=== PATIENT | female | born 1940 | race Caucasian/White ===

== ENCOUNTER → 2021-10-04 11:41 | Outpatient (CLI) | payer MEDICARE, BC, SELFPAY ==
[2021-10-04 12:31] LABS: Basophils # 0.1 K/mm3 (0-0.2); Eosinophils # 0.2 K/mm3 (0.0-0.4); Eosinophils % 3.3 % (0.1-12.0); Hematocrit 44.6 % (37.0-47.0); Hemoglobin 14.9 g/dL (12.2-16.2); Lymphocytes % 29.4 % (10-50); Mean Corpuscular HGB Conc 33.5 g/dL (31.8-35.4); Mean Corpuscular Hemoglobin 32.3 pg (27.0-31.2); Mean Corpuscular Volume 96.3 fl (81-99); Mean Platelet Volume 7.9 fl (7.4-10.4); Monocytes # 0.5 K/mm3 (0.1-1.0); Monocytes % 7.7 % (1.7-9.3); Neutrophils % 58.7 % (37.0-80.0); Platelet Count 490 K/mm3 (142-424); Red Blood Count 4.63 M/mm3 (4.20-5.40); Red Cell Distribution Width 12.9 % (11.5-17.5); White Blood Count 6.8 K/mm3 (4.8-10.8)
[2021-10-04 12:50] LABS: Alanine Aminotransferase 19 U/L (12-78); Albumin Level 4.6 g/dl (3.5-5.0); Albumin/Globulin Ratio 1.9 (1.1-1.8); Alkaline Phosphatase 82 U/L (38-126); Anion Gap 13.1 mEq/L (5-15); Aspartate Amino Transferase 30 U/L (14-36); Bilirubin,Total 0.9 mg/dl (0.2-1.3); Blood Urea Nitrogen 19 mg/dl (7-17); Carbon Dioxide 30 mmol/L (22.0-30.0); Chloride 98 mmol/L (98-107); Chol/HDL Ratio 1.9 (1-3.5); Cholesterol 140 mg/dl (140-200); Estimated Glomerular Filt Rate 53 ml/min (>60); GFR (African American) 64 ML/MIN (>60); Globulin 2.4 g/dL (1.3-3.2); Glucose 87 mg/dl (74-100); HDL Cholesterol 74 mg/dl (40-60); Potassium 5.1 mmoL/L (3.5-5.1); Sodium 136 mmol/L (136-145); Triglycerides 169 mg/dl (30-150); VLDL Cholesterol 34 mg/dL (0-40)
[2021-10-04 13:01] LABS: Direct LDL Cholesterol 88.88 mg/dL (100-129)
[2021-10-04 13:07] LABS: Free T4 (Free Thyroxine) 1.34 ng/dl (0.78-2.19)
== END ==
PROVIDERS: Visit Provider Nurse Practitioner Family
DX: Z00.00 Encounter for general adult medical examination without abnormal findings (principal); I10 Essential (primary) hypertension; E03.9 Hypothyroidism, unspecified; E78.2 Mixed hyperlipidemia
CPT/HCPCS: 36415; 80053; 80061; 84439; 84443; 85025

== ENCOUNTER 2022-03-23 11:15 | Emergency (ER) | payer MEDICARE, BC, SELFPAY ==
[2022-03-23 12:20] VITALS: BP 139/75; PULSE 65; RESP 18; TEMP 36.8; O2SAT 94; BMI 26.5
--- NOTE | 2022-03-23 12:44 | HMH.EDUTC ---
[facility] [place] Clinical Impression: Sinusitis Qualifiers: Sinusitis location: unspecified location Chronicity: unspecified Qualified Code(s): J32.9 - Chronic sinusitis, unspecified Disposition: Home, Self-Care Condition on Discharge: Good Instructions: Sinusitis, DI for Sinusitis, Azithromycin Additional Instructions: *Monitor Temp, Over the counter Motrin or Tylenol as directed/as needed Tylenol every 4 hours and Motrin every 6 hours (as long as your family doctor has told you that you can take it) for fever or pain. and straight to ER if unable to lower temp less than 101.0 after medication given *Warm salt water gargles may help to soothe the throat *Throat Lozenges *Warm fluids like tea with honey may help to soothe the throat *Sleep elevated *Humidifier/Vaporizer *Flonase 2 sprays in each nostril daily but be aware that it may take 2-3 days before you notice improvement Take medication as prescribed Follow up IMMEDIATELY for new or worsening symptoms or no Noticeable improvement over the next 48-72 hours. 911 for difficulty breathing or swallowing Prescriptions: Fluticasone Propionate [Flonase 50mcg nasal spray 16gm] 1 spr NS DAILY #1 each Transmission Status: Received by [facility] Azithromycin [Z-Song 250mg Tab] 250 mg PO DIRECTED #6 tab Transmission Status: Received by [facility] [facility] Referrals: Bryant Shell MD [Primary Care Provider] - As needed Time of Disposition: 12:54 Medical Decision Making - Rodolfo Inquiry Pt receiving controlled substance: No Rodolfo was queried for this patient: No Vital Signs: 03/23/22 12:20 03/23/22 12:57 Temperature 98.3 F 98.3 F Temperature Source Oral Pulse Rate 65 Pulse Rate [Left Brachial] 65 Respiratory Rate 18 18 Blood Pressure 139/75 Blood Pressure [Left Arm] 139/75 Blood Pressure Mean [Left Arm] 96 Blood Pressure Source [Left Arm] Automatic Cuff Blood Pressure Position [Left Arm] Sitting 02 Sat by Pulse Oximetry 94 L Oxygen Delivery Method Room Air Orders (Tests/Meds): ED MEDICATIONS Discontinued Medications Generic Name Dose Route Start Last Admin Trade Name Freq PRN Reason Stop Dose Admin Methylprednisolone Sodium Succinate 125 mg 03/23/22 12:49 03/23/22 12:57 Methylprednisolone Sod Succ 125mg Vial IM 03/23/22 12:50 125 mg ONCE ONE Administration [facility] [place] - General Stated complaint: hoarse, sore throat Time Seen by Provider: 03/23/22 12:45 Mode of Arrival: Ambulatory Source of Information: Patient Limitations: No Limitations Description of Symptoms (Recalled from Triage Doc. by RN): PATIENT C/O SORE THROAT AND HOARSENESS SINCE THIS MORNING HEENT Symptoms (Recalled from RN notes): Yes Resp Symptoms (Recalled from RN notes): No Skin Symptoms (Recalled from RN notes): No MS Symptoms (Recalled from RN notes): No Functional Status (Recalled from RN notes): WNL - History of Present Illness Provider Complaint: Patient state that she has been having sinus congestion for a couple of weeks and thought it may have been allergies States that then yesterday she started having sore throat and drainage in the back of her throat and when she woke up this morning she could barely talk and her throat felt worse so family brought her in - Related Data Previous Rx's Medication Instructions Recorded Azithromycin [Z-Song 250mg Tab] 250 mg PO DIRECTED #6 tab 03/23/22 Fluticasone Propionate [Flonase 1 spr NS DAILY #1 each 03/23/22 50mcg nasal spray 16gm] Allergies Allergy/AdvReac Type Severity Reaction Status Date / Time No Known Allergies Allergy Verified 03/23/22 12:44 - Worker's Comp Is this a Worker's Comp case?: No [facility] History - Hepatitis A Screen Attestation statement:: This patient has been screened for Hepatitis A risk factors. I have reviewed the patient's past medical history: Yes ROS Obtained: Yes All systems reviewed & no additional complaints, Yes Syste
[2022-03-23 12:57] VITALS: BP 139/75; PULSE 65; RESP 18; TEMP 36.8; O2SAT 94
== END 2022-03-23 13:10 | disposition home or self-care (01) ==
PROVIDERS: Emergency Provider Nurse Practitioner; PCP Family Medicine
DX: J32.9 Chronic sinusitis, unspecified (principal); J02.9 Acute pharyngitis, unspecified
CPT/HCPCS: 96372; 99212; G0463

== ENCOUNTER 2022-07-09 22:31 | Emergency (ER) | payer MEDICARE, BC, SELFPAY ==
[2022-07-09 22:38] VITALS: BP 159/92; PULSE 66; O2SAT 95
[2022-07-09 22:45] VITALS: BP 159/92; PULSE 66; RESP 18; TEMP 36.6; O2SAT 96; BMI 25.7
[2022-07-09 23:00] VITALS: BP 132/73; PULSE 63; O2SAT 94
--- NOTE | 2022-07-09 23:20 | CT_ITS ---
PROCEDURE INFORMATION: Exam: CT Abdomen And Pelvis With Contrast Exam date and time: 07/09/2022 11:47 PM Age: 82 years old Clinical indication: Nausea; Additional info: Excessive nausea TECHNIQUE: Imaging protocol: Computed tomography of the abdomen and pelvis with contrast. Radiation optimization: All CT scans at this facility use at least one of these dose optimization techniques: automated exposure control; mA and/or kV adjustment per patient size (includes targeted exams where dose is matched to clinical indication); or iterative reconstruction. Contrast material: ISOVUE; Contrast volume: 75 ml; Contrast route: IV; COMPARISON: No relevant prior studies available. FINDINGS: Lungs: There is strands of increased density at the right lung base consistent with subsegmental atelectasis or scarring. No pleural effusion or pneumothorax. Heart: Heart size is normal. No pericardial effusion. Liver: There is a 1 cm circumscribed low-attenuation focus of the anterior right hepatic lobe consistent with cyst. There is an 8 mm vague poorly circumscribed lesion of the posterior right hepatic lobe, possible cyst. Gallbladder and bile ducts: Status post cholecystectomy. There is ectasia of the common duct. Pancreas: Unremarkable. Spleen: Unremarkable. Adrenal glands: Unremarkable. Kidneys and ureters: There is a 2 cm left parapelvic cyst versus prominent extra collecting system. There is There is a 7 mm left renal cortical cyst. Stomach and bowel: Small and large bowel caliber is normal. There is mild diverticulosis of the sigmoid colon without CT evidence of acute diverticulitis. Appendix: The appendix is identified and is normal. Intraperitoneal space: No free air. No significant fluid collection. Retroperitoneal space: No bulky lymphadenopathy. Vasculature: Unremarkable. No abdominal aortic aneurysm. Lymph nodes: Unremarkable. No enlarged lymph nodes. Urinary bladder: Unremarkable as visualized. Reproductive: Status post hysterectomy. Bones/joints: There are postoperative changes of the right femur with intramedullary job and femoral neck compression screw in place. Soft tissues: Small hiatus hernia. Small umbilical hernia contains fat only. IMPRESSION: 1. Small hiatus hernia. 2. Mild sigmoid diverticulosis without evidence of acute diverticulitis. 3. Cystic appearing lesions of the liver measure 10 and 8 mm. Hepatic ultrasound may clarify. 4. Left renal cysts. 5. Status post cholecystectomy and hysterectomy. COMMENTS: Consistent with the [employer]'s Incidental Findings Committee white paper (J Am Jennifer Radiol 2018): Any incidental renal lesion less than 1 cm or classified as too small to characterize, or any incidental cystic renal lesion characterized as simple-appearing, is likely benign. No follow-up imaging is recommended for these lesions per consensus recommendations based on imaging criteria.
[2022-07-09 23:27] LABS: Basophils # 0.1 K/mm3 (0-0.2); Basophils % 1.2 % (0.1-2.0); Eosinophils # 0.3 K/mm3 (0.0-0.4); Eosinophils % 4.1 % (0.1-12.0); Hematocrit 44.3 % (37.0-47.0); Hemoglobin 13.4 g/dL (12.2-16.2); Lymphocytes # 2.1 K/mm3 (0.7-4.5); Lymphocytes % 24.9 % (10-50); Mean Corpuscular HGB Conc 30.3 g/dL (31.8-35.4); Mean Corpuscular Hemoglobin 31.6 pg (27.0-31.2); Mean Corpuscular Volume 104.3 fl (81-99); Mean Platelet Volume 8.5 fl (7.4-10.4); Monocytes # 0.8 K/mm3 (0.1-1.0); Monocytes % 9.1 % (1.7-9.3); Neutrophils % 60.8 % (37.0-80.0); Platelet Count 422 K/mm3 (142-424); Red Blood Count 4.25 M/mm3 (4.20-5.40); Red Cell Distribution Width 13.1 % (11.5-17.5); White Blood Count 8.3 K/mm3 (4.8-10.8)
[2022-07-09 23:30] VITALS: BP 136/69; PULSE 62; O2SAT 96
[2022-07-09 23:32] LABS: Microscopic, Urine URINE MICROSCOPIC (MICROSCOPIC)
[2022-07-09 23:33] LABS: Appearance,Urine CLOUDY (Clear); Bilirubin,Urine Negative (Negative); Blood, Urine 1+ (Negative); Color,Urine YELLOW (Yellow); Glucose,Urine (UA) Negative (Negative); Ketones,Urine Negative (Negative); Leukocyte Esterase,Urine 1+ (Negative); Nitrate,Urine POSITIVE (Negative); Protein,Urine Negative (Negative); Specific Gravity, Urine 1.025 (1.005-1.030); Urobilinogen,Urine 0.2 EU/dl (0.2)
[2022-07-09 23:34] LABS: Alanine Aminotransferase 36 U/L (12-78); Albumin Level 3.8 g/dl (3.5-5.0); Albumin/Globulin Ratio 1.6 (1.1-1.8); Alkaline Phosphatase 84 U/L (38-126); Amylase 65 U/L (30-110); Aspartate Amino Transferase 41 U/L (14-36); Blood Urea Nitrogen 15 mg/dl (7-17); Calcium 9.1 mg/dl (8.4-10.2); Carbon Dioxide 28 mmol/L (22.0-30.0); Chloride 104 mmol/L (98-107); Creatinine Clearance Estimated 45 mL/min (50-200); Estimated Glomerular Filt Rate 60 ml/min (>60); GFR (African American) 73 ML/MIN (>60); Globulin 2.4 g/dL (1.3-3.2); Glucose 147 mg/dl (74-100); Lipase 95 U/L (23-300); Magnesium 1.8 mg/dl (1.6-2.3); Sodium 138 mmol/L (136-145); Total Protein,Serum 6.2 g/dl (6.3-8.2)
[2022-07-09 23:35] LABS: Bacteria,Urine 2+ /lpf; WBC,Urine 20-50 #/hpf (0-3)
[2022-07-09 23:38] LABS: Bilirubin,Total 0.1 mg/dl (0.2-1.3)
[2022-07-09 23:40] LABS: C-Reactive Protein < 0.3 mg/L (0-4)
--- NOTE | 2022-07-09 23:44 | HMH.EDNVD ---
ED Disposition Clinical Impression: UTI (urinary tract infection) Qualifiers: Urinary tract infection type: site unspecified Hematuria presence: without hematuria Qualified Code(s): N39.0 - Urinary tract infection, site not specified Disposition: Home, Self-Care Condition on Discharge: Good Instructions: DI for Nausea -- Adult, DI for Urinary Tract Infection (UTI) Additional Instructions: use meds and anthony pcp for follow up Prescriptions: cephALEXin [cephALEXin 500mg capsule*] 500 mg PO TID #30 cap Transmission Status: Pending to [facility] Referrals: Bryant Shell MD [Primary Care Provider] - - Critical Care Critical Care Time: No Attestation: On 07/09/22, the high probability of a clinically significant, sudden or life threatening deterioration of the following system(s) required my full and direct attention, intervention and personal management. The time I documented below is in addition to time spent performing reported procedures but includes the following listed in this critical care notation. Medical Decision Making - Medical Records Medical records reviewed: Yes: I reviewed the patient's medical records. - Rodolfo Inquiry Pt receiving controlled substance: No Vital Signs: 07/09/22 22:38 07/09/22 22:45 07/09/22 23:00 Temperature 98 F Temperature Source Oral Pulse Rate 66 63 Pulse Rate [Apical] 66 Respiratory Rate 18 Blood Pressure 159/92 H 132/73 Blood Pressure [Right Arm] 159/92 H Blood Pressure Mean [Right Arm] 114 Blood Pressure Source [Right Arm] Automatic Cuff Blood Pressure Position [Right Arm] Sitting 02 Sat by Pulse Oximetry 95 96 94 L Oxygen Delivery Method Room Air Room Air Room Air 07/09/22 23:30 07/10/22 00:31 Temperature Temperature Source Pulse Rate 62 59 L Pulse Rate [Apical] Respiratory Rate Blood Pressure 136/69 120/58 L Blood Pressure [Right Arm] Blood Pressure Mean [Right Arm] Blood Pressure Source [Right Arm] Blood Pressure Position [Right Arm] 02 Sat by Pulse Oximetry 96 96 Oxygen Delivery Method Room Air Room Air - Lab Data Lab results reviewed: Yes: I reviewed the patient's lab results. Lab Results 07/09/22 23:15: WBC 8.3, RBC 4.25, Hgb 13.4, Hct 44.3, MCV 104.3 H, MCH 31.6 H, MCHC 30.3 L, RDW 13.1, Plt Count 422, MPV 8.5, Neut % (Auto) 60.8, Lymph % (Auto) 24.9, Pepin % (Auto) 9.1, Eos % (Auto) 4.1, Baso % (Auto) 1.2, Neut # (Auto) 5.0, Lymph # (Auto) 2.1, Pepin # (Auto) 0.8, Eos # (Auto) 0.3, Baso # (Auto) 0.1, ESR 18 07/09/22 23:15: Sodium 138, Potassium 4.0, Chloride 104, Carbon Dioxide 28, Anion Gap 10.0, BUN 15, Creatinine 0.90, Estimated Creat Clear 45, Estimated GFR 60, Est GFR ( Amer) 73, Glucose 147 H, Calcium 9.1, Magnesium 1.8, Total Bilirubin 0.1 L, AST 41 H, ALT 36, Alkaline Phosphatase 84, C-Reactive Protein < 0.3, Total Protein 6.2 L, Albumin 3.8, Globulin 2.4, Albumin/Globulin Ratio 1.6, Amylase 65, Lipase 95, Procalcitonin < 0.030, TSH 4.90 H 07/09/22 23:15: NT-Pro-B Natriuret Pep 34.0 07/09/22 23:15: SARS-CoV-2 (PCR) Not detected, Influenza A Untype (PCR) Not detected, Influenza Type B (PCR) Not detected 07/09/22 23:25: Urine Color Yellow, Urine Appearance Cloudy, Urine pH 6.0, Ur Specific [place] 1.025, Urine Protein Negative, Urine Glucose (UA) Negative, Urine Ketones Negative, Urine Blood 1+, Urine Nitrate Positive, Urine Bilirubin Negative, Urine Urobilinogen 0.2, Ur Leukocyte Esterase 1+ A, Urine RBC 5-10, Urine WBC 20-50, Urine Bacteria 2+ Result diagrams: 07/09/22 23:15 07/09/22 23:15 Orders (Tests/Meds): ED MEDICATIONS Generic Name Dose Route Start Last Admin Trade Name Freq PRN Reason Stop Dose Admin Sodium Chloride 1,000 mls @ 999 mls/hr 07/09/22 23:00 07/09/22 22:57 Sod Chlor 0.9% 1000ml Bag IV 07/10/22 00:00 999 mls/hr .Q1H1M TANGELA Administration Ceftriaxone Sodium 1 gm/ 50 mls @ 100 mls/hr 07/10/22 00:15 07/10/22 00:03 Sodium Chloride IV 07/24/22 00:
[2022-07-09 23:50] LABS: Erythrocyte Sedimentation Rate 18 mm/hr (0-30)
[2022-07-09 23:55] LABS: Procalcitonin < 0.030 ng/mL (0.0-2.0)
[2022-07-09 23:56] LABS: Coronavirus 19, PCR Not Detected (NotDetected); Influenza A, PCR Not Detected (NotDetected); Influenza B, PCR Not Detected (NotDetected)
[2022-07-10 00:31] VITALS: BP 120/58; PULSE 59; O2SAT 96
[2022-07-10 01:05] VITALS: BP 131/74; PULSE 64; RESP 18; TEMP 36.6; O2SAT 96
== END 2022-07-10 01:12 | disposition home or self-care (01) ==
PROVIDERS: Emergency Provider Emergency Medicine; PCP Family Medicine
DX: N39.0 Urinary tract infection, site not specified (principal)
CPT/HCPCS: 74177; 80053; 81001; 82150; 83690; 83735; 83880; 84145; 84443; 85025; 85651; 86140; 87086; 87088; 87186; 96365; 96367; 96375; 99284; C9803; J0696; J2405; Q9967; U0003; U0005

== ENCOUNTER 2022-10-25 02:45 | Emergency (ER) | payer MEDICARE, BC, SELFPAY ==
[2022-10-25 02:48] VITALS: BP 130/76; PULSE 78; RESP 17; TEMP 36.9; O2SAT 98; BMI 25.7
[2022-10-25 03:06] VITALS: BMI 25.7
--- NOTE | 2022-10-25 03:07 | XR_ITS ---
PROCEDURE INFORMATION: Exam: XR Chest Exam date and time: 10/25/2022 3:03 AM Age: 82 years old Clinical indication: Cough TECHNIQUE: Imaging protocol: Radiologic exam of the chest. Views: 2 views. COMPARISON: CT ABDOMEN PELVIS W CON 07/09/2022 11:47 PM FINDINGS: Lungs: Unremarkable. No consolidation. Pleural spaces: Unremarkable. No pleural effusion. No pneumothorax. Heart/Mediastinum: Unremarkable. No cardiomegaly. Bones/joints: Unremarkable. IMPRESSION: No acute findings.
[2022-10-25 03:14] LABS: Coronavirus 19, PCR Not Detected (NotDetected); Influenza A, PCR Not Detected (NotDetected); Influenza B, PCR Not Detected (NotDetected)
[2022-10-25 03:14] LABS: Microscopic, Urine URINE MICROSCOPIC (MICROSCOPIC)
[2022-10-25 03:16] LABS: Appearance,Urine CLEAR (Clear); Bilirubin,Urine Negative (Negative); Blood, Urine 1+ (Negative); Color,Urine YELLOW (Yellow); Glucose,Urine (UA) Negative (Negative); Ketones,Urine Negative (Negative); Leukocyte Esterase,Urine 2+ (Negative); Nitrate,Urine POSITIVE (Negative); Protein,Urine Negative (Negative); Specific Gravity, Urine 1.025 (1.005-1.030)
[2022-10-25 03:22] LABS: Strep Scrn Group A (Rapid) Negative (Negative)
[2022-10-25 03:30] VITALS: BP 125/80; PULSE 78; O2SAT 94
[2022-10-25 03:31] LABS: Bacteria,Urine 3+ /lpf
--- NOTE | 2022-10-25 03:58 | HMH.EDGENADL ---
Discharge Plan Disposition Patient Disposition: Home, Self-Care Prescriptions Prescriptions: New cephalexin [cephalexin] 500 mg capsule 500 mg PO TID Qty: 20 0RF phenazopyridine [Pyridium] 200 mg tablet 200 mg PO TID 2 Days Qty: 6 0RF No Action furosemide 40 MG tablet 40 mg PO DAILY donepezil 10 MG tablet 10 mg PO HS carvedilol 3.125 MG tablet 3.125 mg PO BID meloxicam 7.5 MG tablet 7.5 mg PO DAILY levothyroxine 50 MCG tablet 50 mcg PO DAILY lisinopril 10 MG tablet 10 mg PO DAILY aspirin 81 MG tablet,chewable 81 mg PO DAILY metoclopramide HCl 10 MG tablet 10 mg PO DAILY ezetimibe-simvastatin 1 EACH tablet 1 each PO DAILY omeprazole 20 MG tablet,delayed release (DR/EC) 20 mg PO DAILY Referrals Follow up/Referrals: Bryant Shell MD [Primary Care Provider] - See instructions Clinical Impressions Clinical Impression: UTI (urinary tract infection) Instructions Patient Instructions: DI for Urinary Tract Infection (UTI) Discharge ED Provider: Milan Fuentes General Adult HPI General Chief complaint: PAIN Stated complaint: sore throat,possible UTI, kidd after urination Time Seen by Provider: 10/25/22 03:58 Mode of Arrival: Family Vehicle Source of Information: Patient, Relative and Medical Record Limitations: No Limitations Description of Symptoms (Recalled from ER Triage Doc. by RN): Pt c/o burning with urination, sore throat, aches, and cough. States, last year she had step throat and an UTI and now feels exactly the same way as last year . States this began suddenly around 0100 this morning. Denies any n/v/d. Denies any SOB, dsynea. History of Present Illness HPI narrative: since this afternoon has urinary sx and has sore throat and has progressed Onset (ago): hour(s) Severity: moderate Associated symptoms: denies other symptoms Treatments prior to arrival: none Related Data Home Medications Medication Instructions Recorded Confirmed aspirin 81 mg chewable tablet 81 mg PO DAILY heart health 07/09/22 10/25/22 carvedilol 3.125 mg tablet 3.125 mg PO BID htn 07/09/22 10/25/22 donepezil 10 mg tablet 10 mg PO HS Insomnia 07/09/22 10/25/22 ezetimibe 10 mg-simvastatin 40 mg 1 each PO DAILY htn 07/09/22 10/25/22 tablet furosemide 40 mg tablet 40 mg PO DAILY Edema 07/09/22 10/25/22 levothyroxine 50 mcg tablet 50 mcg PO DAILY hypothyroid 07/09/22 10/25/22 lisinopril 10 mg tablet 10 mg PO DAILY htn 07/09/22 10/25/22 meloxicam 7.5 mg tablet 7.5 mg PO DAILY Pain 07/09/22 10/25/22 metoclopramide HCl 10 mg tablet 10 mg PO DAILY Nausea & vomiting 07/09/22 10/25/22 omeprazole 20 mg tablet,delayed 20 mg PO DAILY GERD 07/09/22 10/25/22 release Previous Rx's Medication Instructions Recorded cephalexin 500 mg capsule 500 mg PO TID #20 caps 10/25/22 phenazopyridine 200 mg tablet 200 mg PO TID 2 days #6 tabs 10/25/22 (Pyridium) Allergies Allergy/AdvReac Type Severity Reaction Status Date / Time No Known Allergies Allergy Verified 03/23/22 12:44 [facility] Disclaimer: The information contained in this section may have been updated after the patient was seen, as this information can be updated by other users. Social History Smoking Status: Never smoker alcohol intake: never current occupational status: retired Travel in the last 8 weeks: None ROS Obtained: Yes All systems reviewed & no additional complaints except as documented Physical Exam General General appearance: alert Head Head exam: normocephalic Eye Eye exam: Present PERRL and EOMI ENT ENT exam: Present normal oropharynx and mucous membranes moist Neck Neck exam: Present trachea midline Respiratory Respiratory exam: Present normal lung sounds bilaterally Cardiovascular Cardiovascular exam: Present regular rate Abdominal Exam Abdominal exam: Present soft Extremities Exam Extremities exam: Present full ROM Neurological
[2022-10-25 04:19] VITALS: BP 130/77; PULSE 87; RESP 18; TEMP 36.9; O2SAT 95
== END 2022-10-25 04:29 | disposition home or self-care (01) ==
PROVIDERS: Emergency Provider Emergency Medicine; PCP Family Medicine
DX: N39.0 Urinary tract infection, site not specified (principal); J02.9 Acute pharyngitis, unspecified
CPT/HCPCS: 71046; 81001; 87086; 87088; 87186; 87430; 96372; 99283; C9803; J0696; U0003; U0005

== ENCOUNTER 2022-11-17 11:37 | Emergency (ER) | payer MEDICARE, OTHER, BC, SELFPAY ==
[2022-11-17] VITALS (9 sets, daily range): BP systolic 111–130; BP diastolic 63–92; PULSE 64–73; RESP 17–20; TEMP 36.8; O2SAT 94–97; BMI 32.2
--- NOTE | 2022-11-17 11:40 | ECG_ITS ---
APPROVED REPORT Exam: Resting ECG HR:68 bpm ECG Measurements Heart Rate 68 AXES RI 159 P 60 QRSd 91 QRS -53 QT 401 T 53 QTc 418 Conclusion SINUS RHYTHM INCOMPLETE RIGHT BUNDLE BRANCH BLOCK [90+ ms QRS DURATION, TERMINAL R IN V1/V2, 40+ ms S IN I/aVL/V4/V5/V6] LEFT ANTERIOR FASCICULAR BLOCK [QRS AXIS <= -45, QR IN I, RS IN II] ABNORMAL ECG UNCONFIRMED REPORT Electronically signed by : Colin St MD 11/17/2022 17:02:07
--- NOTE | 2022-11-17 11:52 | XR_ITS ---
FINAL REPORT CLINICAL HISTORY: CHEST PAIN COMPARISON: 10/25/2022 FINDINGS: SINGLE-VIEW CHEST The heart size is normal. The mediastinum is normal. There are mild left base opacities, favor atelectasis. There is no pneumothorax. IMPRESSION: Left base opacities, favor atelectasis. Reviewed, Interpreted and Dictated by Dylon Delong III, MD Transcribed by Jolene Escalona Authenticated and [facility]
[2022-11-17 12:00] LABS: Basophils # 0.1 K/mm3 (0-0.2); Eosinophils # 0.2 K/mm3 (0.0-0.4); Eosinophils % 3.1 % (0.1-12.0); Hematocrit 47.2 % (37.0-47.0); Hemoglobin 14.8 g/dL (12.2-16.2); Lymphocytes # 1.9 K/mm3 (0.7-4.5); Lymphocytes % 26.7 % (10-50); Mean Corpuscular HGB Conc 31.4 g/dL (31.8-35.4); Mean Corpuscular Hemoglobin 31.8 pg (27.0-31.2); Mean Corpuscular Volume 101.2 fl (81-99); Mean Platelet Volume 8.5 fl (7.4-10.4); Monocytes # 0.5 K/mm3 (0.1-1.0); Monocytes % 6.9 % (1.7-9.3); Neutrophils # 4.4 K/mm3 (1.8-7.8); Neutrophils % 62.2 % (37.0-80.0); Platelet Count 470 K/mm3 (142-424); Red Blood Count 4.66 M/mm3 (4.20-5.40); Red Cell Distribution Width 13.1 % (11.5-17.5); White Blood Count 7.1 K/mm3 (4.8-10.8)
[2022-11-17 12:01] LABS: Chloride 101 mmol/L (98-107); Potassium 4.3 mmoL/L (3.5-5.1); Sodium 140 mmol/L (136-145)
[2022-11-17 12:04] LABS: Anion Gap 12.3 mEq/L (5-15); Blood Urea Nitrogen 21 mg/dl (7-17); Carbon Dioxide 31 mmol/L (22.0-30.0); Creatinine Clearance Estimated 47 mL/min (50-200); Estimated Glomerular Filt Rate 43 ml/min (>60); GFR (African American) 52 ML/MIN (>60)
[2022-11-17 12:05] LABS: Calcium 9.4 mg/dl (8.4-10.2); Glucose 99 mg/dl (74-100)
--- NOTE | 2022-11-17 12:06 | HMH.EDGENADL ---
Discharge Plan Disposition Patient Disposition: Home, Self-Care Condition: Good Chief Complaint: Chest Pain Prescriptions Prescriptions: No Action furosemide 40 MG tablet 40 mg PO DAILY donepezil 10 MG tablet 10 mg PO HS carvedilol 3.125 MG tablet 3.125 mg PO BID meloxicam 7.5 MG tablet 7.5 mg PO DAILY levothyroxine 50 MCG tablet 50 mcg PO DAILY lisinopril 10 MG tablet 10 mg PO DAILY aspirin 81 MG tablet,chewable 81 mg PO DAILY metoclopramide HCl 10 MG tablet 10 mg PO DAILY ezetimibe-simvastatin 1 EACH tablet 1 each PO DAILY omeprazole 20 MG tablet,delayed release (DR/EC) 20 mg PO DAILY cephalexin [cephalexin] 500 mg capsule 500 mg PO TID Qty: 20 0RF phenazopyridine [Pyridium] 200 mg tablet 200 mg PO TID 2 Days Qty: 6 0RF Referrals Follow up/Referrals: Kaiser Ng MD [Staff Physician] - See instructions (Stable angina, outpatient cardiac work-up needed) Activity Restrictions/Add. Instructions Additional Instructions/Restrictions: Follow-up with cardiology, information is in your discharge packet. They will be able to do outpatient work-up for further characterization of your chest pain. If you have any other concerning signs or symptoms, return to the ED for further evaluation. Clinical Impressions Clinical Impression: Chest pain Qualifiers: Chest pain type: unspecified Qualified Code(s): R07.9 - Chest pain, unspecified Discharge ED Provider: Tony Hernandez General Adult HPI General Chief complaint: Chest Pain Stated complaint: chest pain Time Seen by Provider: 11/17/22 11:57 Mode of Arrival: EMS Source of Information: Patient Limitations: No Limitations Description of Symptoms (Recalled from ER Triage Doc. by RN): p to ed c/o center chest pain that is stationary. pt states she was sitting in her recliner today when she got a sudden onset of pain in her chest. pt denies soa or other symptoms. History of Present Illness HPI narrative: This is an 82-year-old female with CAD, hypertension, hyperlipidemia, hypothyroidism who is presenting with chest pressure. Patient states her chest pressure started approximately an hour prior to arrival. She was sitting in her chair. It is felt like a pressure, or a balloon filling up in my chest, but self resolved. It was intense at first, but has since resolved.She was nauseous, but did not vomit. Denies diaphoresis, shortness of breath, weakness, fatigue, syncope. Pressure did not radiate and no other relevant history. Related Data Home Medications Medication Instructions Recorded Confirmed aspirin 81 mg chewable tablet 81 mg PO DAILY heart health 07/09/22 10/25/22 carvedilol 3.125 mg tablet 3.125 mg PO BID htn 07/09/22 10/25/22 donepezil 10 mg tablet 10 mg PO HS Insomnia 07/09/22 10/25/22 ezetimibe 10 mg-simvastatin 40 mg 1 each PO DAILY htn 07/09/22 10/25/22 tablet furosemide 40 mg tablet 40 mg PO DAILY Edema 07/09/22 10/25/22 levothyroxine 50 mcg tablet 50 mcg PO DAILY hypothyroid 07/09/22 10/25/22 lisinopril 10 mg tablet 10 mg PO DAILY htn 07/09/22 10/25/22 meloxicam 7.5 mg tablet 7.5 mg PO DAILY Pain 07/09/22 10/25/22 metoclopramide HCl 10 mg tablet 10 mg PO DAILY Nausea & vomiting 07/09/22 10/25/22 omeprazole 20 mg tablet,delayed 20 mg PO DAILY GERD 07/09/22 10/25/22 release Previous Rx's Medication Instructions Recorded cephalexin 500 mg capsule 500 mg PO TID #20 caps 10/25/22 phenazopyridine 200 mg tablet 200 mg PO TID 2 days #6 tabs 10/25/22 (Pyridium) Allergies Allergy/AdvReac Type Severity Reaction Status Date / Time No Known Allergies Allergy Verified 03/23/22 12:44 [facility] Disclaimer: The information contained in this section may have been updated after the patient was seen, as this information can be updated by other users. Social History (Updated 10/25/22 @ 04:11 by Milan Fuentes MD) Smoking Status: Never smoker alcohol inta
[2022-11-17 12:17] LABS: Troponin I < 0.01 ng/ml (0.00-0.034)
[2022-11-17 16:22] LABS: Troponin I < 0.01 ng/ml (0.00-0.034)
== END 2022-11-17 17:05 | disposition home or self-care (01) ==
PROVIDERS: Emergency Provider Emergency Medicine; PCP Family Medicine
DX: R07.9 Chest pain, unspecified (principal); R11.2 Nausea with vomiting, unspecified; I10 Essential (primary) hypertension; I25.10 Atherosclerotic heart disease of native coronary artery without angina pectoris; E78.5 Hyperlipidemia, unspecified; K21.9 Gastro-esophageal reflux disease without esophagitis; E03.9 Hypothyroidism, unspecified; G47.00 Insomnia, unspecified; Z79.82 Long term (current) use of aspirin; Z79.899 Other long term (current) drug therapy
CPT/HCPCS: 71045; 80048; 84484; 85025; 93005; 96360; 99284

== ENCOUNTER → 2023-05-17 08:28 | Outpatient (CLI) | payer MEDICARE, OTHER, BC, SELFPAY ==
[2023-05-17 09:16] LABS: Basophils # 0.1 K/mm3 (0-0.2); Basophils % 0.7 % (0.1-2.0); Eosinophils # 0.3 K/mm3 (0.0-0.4); Hematocrit 44.3 % (37.0-47.0); Hemoglobin 13.8 g/dL (12.2-16.2); Lymphocytes # 1.6 K/mm3 (0.7-4.5); Lymphocytes % 25.9 % (10-50); Mean Corpuscular HGB Conc 31.1 g/dL (31.8-35.4); Mean Corpuscular Hemoglobin 30.9 pg (27.0-31.2); Mean Corpuscular Volume 99.6 fl (81-99); Mean Platelet Volume 8.1 fl (7.4-10.4); Monocytes # 0.5 K/mm3 (0.1-1.0); Monocytes % 7.6 % (1.7-9.3); Neutrophils # 3.8 K/mm3 (1.8-7.8); Neutrophils % 60.8 % (37.0-80.0); Platelet Count 375 K/mm3 (142-424); Red Blood Count 4.45 M/mm3 (4.20-5.40); Red Cell Distribution Width 13.4 % (11.5-17.5); White Blood Count 6.2 K/mm3 (4.8-10.8)
[2023-05-17 10:22] LABS: Alanine Aminotransferase 24 U/L (12-78); Albumin/Globulin Ratio 1.8 (1.1-1.8); Alkaline Phosphatase 79 U/L (38-126); Anion Gap 13.6 mEq/L (5-15); Aspartate Amino Transferase 30 U/L (14-36); Bilirubin,Total 0.8 mg/dl (0.2-1.3); Blood Urea Nitrogen 17 mg/dl (7-17); Calcium 9.1 mg/dl (8.4-10.2); Carbon Dioxide 29 mmol/L (22.0-30.0); Chloride 102 mmol/L (98-107); Chol/HDL Ratio 2.6 (1-3.5); Cholesterol 148 mg/dl (140-200); Estimated Glomerular Filt Rate 69 ml/min (>60); GFR (African American) 83 ML/MIN (>60); Globulin 2.2 g/dL (1.3-3.2); Glucose 101 mg/dl (74-100); HDL Cholesterol 58 mg/dl (40-60); Potassium 4.6 mmoL/L (3.5-5.1); Sodium 140 mmol/L (136-145); Total Protein,Serum 6.2 g/dl (6.3-8.2); Triglycerides 169 mg/dl (30-150); VLDL Cholesterol 34 mg/dL (0-40)
[2023-05-17 10:33] LABS: Direct LDL Cholesterol 72.35 mg/dL (100-129)
[2023-05-17 10:38] LABS: 25-OH Vitamin D, Total 39.1 ng/mL (30-100)
[2023-05-17 10:53] LABS: Thyroid Stimulating Hormone 2.13 uIU/mL (0.465-4.68)
== END ==
PROVIDERS: PCP Family Medicine; Visit Provider Nurse Practitioner Family
DX: I10 Essential (primary) hypertension (principal); R60.0 Localized edema; E78.5 Hyperlipidemia, unspecified; E03.9 Hypothyroidism, unspecified; Z79.899 Other long term (current) drug therapy; E55.9 Vitamin D deficiency, unspecified
CPT/HCPCS: 36415; 80053; 80061; 82306; 84443; 85025

== ENCOUNTER 2023-06-16 20:24 | Observation (INO) | payer MEDICARE, OTHER, BC, SELFPAY ==
[2023-06-16 20:24] VITALS: BP 150/70; PULSE 70; RESP 16; TEMP 36.6; O2SAT 96; BMI 31.4
--- NOTE | 2023-06-16 20:34 | XR_ITS ---
PROCEDURE INFORMATION: Exam: XR Right Elbow Exam date and time: 06/16/2023 8:49 PM Age: 82 years old Clinical indication: Injury or trauma; Fall; Additional info: Fall, pain TECHNIQUE: Imaging protocol: Radiologic exam of the right elbow. Views: 3 or more views. COMPARISON: No relevant prior studies available. FINDINGS: Bones/joints: Degenerative changes of elbow. No cortical disruption. Osteopenia. Soft tissues: Normal. Other findings: No effusion. IMPRESSION: No acute radiographic findings identified.
--- NOTE | 2023-06-16 20:34 | XR_ITS ---
PROCEDURE INFORMATION: Exam: XR Right Humerus Exam date and time: 06/16/2023 8:49 PM Age: 82 years old Clinical indication: Injury or trauma; Fall; Additional info: Fall, pain TECHNIQUE: Imaging protocol: Radiologic exam of the right humerus. Views: 2 or more views. COMPARISON: CR XR CHEST PORTABLE 11/17/2022 12:08 PM FINDINGS: Bones/joints: Comminuted, impacted, angulated humeral head and neck fractures. No dislocation. Soft tissues: Normal. Other findings: Limited visualized thorax grossly unremarkable. IMPRESSION: Proximal humerus fracture.
--- NOTE | 2023-06-16 20:34 | XR_ITS ---
PROCEDURE INFORMATION: Exam: XR Right Forearm Exam date and time: 06/16/2023 8:49 PM Age: 82 years old Clinical indication: Injury or trauma; Fall; Additional info: Fall, pain TECHNIQUE: Imaging protocol: Radiologic exam of the right forearm. Views: 2 views. COMPARISON: No relevant prior studies available. FINDINGS: Bones/joints: Degenerative changes of visualized wrist and elbow. No acute cortical disruption. Normal alignment. Osteopenia. Soft tissues: Normal. Other findings: No effusion. IMPRESSION: No acute radiographic findings identified.
--- NOTE | 2023-06-16 20:34 | CT_ITS ---
PROCEDURE INFORMATION: Exam: CT Head Without Contrast Exam date and time: 06/16/2023 9:26 PM Age: 82 years old Clinical indication: Injury or trauma; Fall TECHNIQUE: Imaging protocol: Computed tomography of the head without contrast. Radiation optimization: All CT scans at this facility use at least one of these dose optimization techniques: automated exposure control; mA and/or kV adjustment per patient size (includes targeted exams where dose is matched to clinical indication); or iterative reconstruction. REPORTING DATA: Count of CT and Cardiac NM exams in prior 12 months: This patient has received [address] and 0 known cardiac nuclear medicine studies in the 12 months prior to the current study. COMPARISON: No relevant prior studies available. FINDINGS: Brain: No acute infarct. No hemorrhage. Involutional changes of the brain, commensurate with age. No mass effect. Cerebral ventricles: No ventriculomegaly. Paranasal sinuses: No significant inflammation. No fluid levels. Mastoid air cells: Visualized mastoid air cells are well aerated. Bones/joints: Unremarkable. No acute fracture. Soft tissues: Unremarkable. IMPRESSION: No acute intracranial abnormality.
--- NOTE | 2023-06-16 20:34 | CT_ITS ---
PROCEDURE INFORMATION: Exam: CT Cervical Spine Without Contrast Exam date and time: 06/16/2023 9:28 PM Age: 82 years old Clinical indication: Injury or trauma; Fall TECHNIQUE: Imaging protocol: Computed tomography of the cervical spine without contrast. Radiation optimization: All CT scans at this facility use at least one of these dose optimization techniques: automated exposure control; mA and/or kV adjustment per patient size (includes targeted exams where dose is matched to clinical indication); or iterative reconstruction. REPORTING DATA: Count of CT and Cardiac NM exams in prior 12 months: This patient has received [address] and 0 known cardiac nuclear medicine studies in the 12 months prior to the current study. COMPARISON: CT HEAD/BRAIN WO CON 06/16/2023 9:26 PM FINDINGS: Bones/joints: Near anatomic alignment. No acute fracture. Multilevel degenerative changes are present. Lungs: Lung apices are normal. Soft tissues: Unremarkable. IMPRESSION: No acute osseous injury.
--- NOTE | 2023-06-16 20:35 | XR_ITS ---
PROCEDURE INFORMATION: Exam: XR Left Elbow Exam date and time: 06/16/2023 8:49 PM Age: 82 years old Clinical indication: Injury or trauma; Fall; Additional info: Fall pain TECHNIQUE: Imaging protocol: Radiologic exam of the left elbow. Views: 1 or 2 views. COMPARISON: No relevant prior studies available. FINDINGS: Bones/joints: Comminuted, intra-articular, impacted humeral condylar fracture without dislocation. Osteopenia. Soft tissues: Normal. IMPRESSION: Humeral condylar fractures.
--- NOTE | 2023-06-16 20:35 | XR_ITS ---
PROCEDURE INFORMATION: Exam: XR Left Humerus Exam date and time: 06/16/2023 8:49 PM Age: 82 years old Clinical indication: Injury or trauma; Fall; Additional info: Fall pain TECHNIQUE: Imaging protocol: Radiologic exam of the left humerus. Views: 2 or more views. COMPARISON: CR XR CHEST PORTABLE 11/17/2022 12:08 PM FINDINGS: Bones/joints: Degenerative changes of acromioclavicular and glenohumeral joints. Osteopenia. Intact cortices. Soft tissues: Normal. Other findings: Visualized thorax grossly unremarkable. IMPRESSION: Degenerative changes without acute radiographic findings identified.
--- NOTE | 2023-06-16 20:36 | XR_ITS ---
PROCEDURE INFORMATION: Exam: XR Left Forearm Exam date and time: 06/16/2023 8:49 PM Age: 82 years old Clinical indication: Injury or trauma; Fall; Additional info: Fall pain TECHNIQUE: Imaging protocol: Radiologic exam of the left forearm. Views: 2 views. COMPARISON: No relevant prior studies available. FINDINGS: Bones/joints: Comminuted, intra-articular fracture of humeral condyles. Degenerative changes of wrist. Osteopenia. Soft tissues: Normal. IMPRESSION: Humeral condylar fractures.
--- NOTE | 2023-06-16 21:29 | HMH.EDGENADL ---
Discharge Plan Disposition Chief Complaint: Fall Prescriptions Prescriptions: No Action furosemide 40 MG tablet 40 mg PO DAILY donepezil 10 MG tablet 10 mg PO HS carvedilol 3.125 MG tablet 3.125 mg PO BID meloxicam 7.5 MG tablet 7.5 mg PO DAILY levothyroxine 50 MCG tablet 50 mcg PO DAILY lisinopril 10 MG tablet 10 mg PO DAILY aspirin 81 MG tablet,chewable 81 mg PO DAILY metoclopramide HCl 10 MG tablet 10 mg PO DAILY ezetimibe-simvastatin 1 EACH tablet 1 each PO DAILY omeprazole 20 MG tablet,delayed release (DR/EC) 20 mg PO DAILY cephalexin [cephalexin] 500 mg capsule 500 mg PO TID Qty: 20 0RF phenazopyridine [Pyridium] 200 mg tablet 200 mg PO TID 2 Days Qty: 6 0RF Referrals Follow up/Referrals: Bryant Shell MD [Primary Care Provider] - See instructions Discharge ED Provider: Treva Verma General Adult HPI General Chief complaint: Fall Stated complaint: Ao 06/16 2000, BL arm pain Time Seen by Provider: 06/16/23 20:33 History of Present Illness HPI narrative: This patient is an 82-year-old female with a history of hypothyroidism presenting to the emergency department for evaluation after a mechanical ground-level fall. She reports that she bent over to water her [place] when her foot got caught on a rug, and she fell forward onto both upper extremities. She felt immediate pain in her left elbow and her right upper extremity. She denies any head injury or loss of consciousness. She denies any numbness, tingling, or other concerns. She was well prior to the fall. She takes aspirin but no blood thinners. Related Data Home Medications Medication Instructions Recorded Confirmed aspirin 81 mg chewable tablet 81 mg PO DAILY heart health 07/09/22 10/25/22 carvedilol 3.125 mg tablet 3.125 mg PO BID htn 07/09/22 10/25/22 donepezil 10 mg tablet 10 mg PO HS Insomnia 07/09/22 10/25/22 ezetimibe 10 mg-simvastatin 40 mg 1 each PO DAILY htn 07/09/22 10/25/22 tablet furosemide 40 mg tablet 40 mg PO DAILY Edema 07/09/22 10/25/22 levothyroxine 50 mcg tablet 50 mcg PO DAILY hypothyroid 07/09/22 10/25/22 lisinopril 10 mg tablet 10 mg PO DAILY htn 07/09/22 10/25/22 meloxicam 7.5 mg tablet 7.5 mg PO DAILY Pain 07/09/22 10/25/22 metoclopramide HCl 10 mg tablet 10 mg PO DAILY Nausea & vomiting 07/09/22 10/25/22 omeprazole 20 mg tablet,delayed 20 mg PO DAILY GERD 07/09/22 10/25/22 release Previous Rx's Medication Instructions Recorded cephalexin 500 mg capsule 500 mg PO TID #20 caps 10/25/22 phenazopyridine 200 mg tablet 200 mg PO TID 2 days #6 tabs 10/25/22 (Pyridium) Allergies Allergy/AdvReac Type Severity Reaction Status Date / Time No Known Allergies Allergy Verified 03/23/22 12:44 [facility] Disclaimer: The information contained in this section may have been updated after the patient was seen, as this information can be updated by other users. Social History Smoking Status: Unknown if ever smoked alcohol intake: never current occupational status: retired Travel in the last 8 weeks: None ROS Obtained: Yes All systems reviewed & no additional complaints except as documented Physical Exam General General appearance: alert Comment: Uncomfortable appearing Head Head exam: atraumatic and normocephalic Eye Eye exam: Present normal appearance, PERRL and EOMI ENT ENT exam: Present normal exam, normal oropharynx and mucous membranes moist Neck Neck exam: Present normal inspection, full ROM and trachea midline; Absent tenderness Chest Chest inspection: Present normal inspection and symmetric chest wall rise; Absent tenderness Respiratory Respiratory exam: Present normal lung sounds bilaterally; Absent respiratory distress, wheezes, stridor or accessory muscle use Cardiovascular Cardiovascular exam: Present regular rate and normal rhythm Abdominal Exam Abdominal exam: Present soft; Absent distention, tenderness or guarding Extremities Exam Extremities exam: Present other (Tenderness to palpation of the right shoulder and left elbow. All compartments soft. Neurovascularly intact distally in all 4 extremities.) Back Exam Back exam: Present normal inspection and full ROM; Absent tenderness Neurological Exam Neurological exam: Present alert, oriented X3 and CN II-XII intact; Absent motor sensory deficit Psychiatric Psychiatric exam: Present normal affect and normal mood Skin Skin exam: Present warm and dry Medical Decision Making Rodolfo Inquiry Pt receiving controlled substance: No Vital Signs: 06/16/23 20:24 Temperature 97.8 F Temperature Source Oral Pulse Rate [Right Brachial] 70 Respiratory Rate 16 Blood Pressure [Left Arm] 150/70 H Blood Pressure Mean [Left Arm] 96 Blood Pressure Source [Left Arm] Automatic Cuff Blood Pressure Position [Left Arm] Sitting 02 Sat by Pulse Oximetry 96 Oxygen Delivery Method Room Air Orders (Tests/Meds): ED MEDICATIONS Discontinued Medications Generic Name Dose Route Start Last Admin Trade Name Kody PRN Reason Stop Dose Admin Ketorolac Tromethamine 15 mg 06/16/23 20:36 06/16/23 21:31 Ketorolac 30mg/Ml Vial IV 06/16/23 20:37 15 mg ONCE ONE Administration Morphine Sulfate 4 mg 06/16/23 20:36 06/16/23 21:31 Morphine 4mg/Ml Syringe IV 06/16/23 20:37 4 mg ONCE ONE Administration Ondansetron HCl 4 mg 06/16/23 20:36 06/16/23 21:31 Ondansetron 4mg/2ml Vial IV 06/16/23 20:37 4 mg ONCE ONE Administration Oxycodone HCl 10 mg 06/16/23 22:34 06/16/23 22:39 Oxycodone 5mg Immediate Release Tablet PO 06/16/23 22:35 10 mg ONCE ONE Administration ORDERS Category Date Time Status CT cervical spine wo con Stat Cat Scan 06/16/23 20:[address] head/brain wo con Stat Cat Scan 06/16/23 20:34 Completed XR elbow LT 2V Stat Exams 06/16/23 20:35 Completed XR elbow RT min 3V Stat Exams 06/16/23 20:34 Completed XR forearm LT 2V Stat Exams 06/16/23 20:36 Completed XR forearm RT 2V Stat Exams 06/16/23 20:34 Completed XR humerus LT Stat Exams 06/16/23 20:35 Completed XR humerus RT Stat Exams 06/16/23 20:34 Completed Critical Care Time Critical Care Time Critical Care Time: No Attestation: On 06/16/23, the high probability of a clinically significant, sudden or life threatening deterioration of the following system(s) required my full and direct attention, intervention and personal management. The time I documented below is in addition to time spent performing reported procedures but includes the following listed in this critical care notation.
[2023-06-16] MEDS: MORPHINE 4MG/ML SYRINGE 4 MG IV (21:31)
[2023-06-16] MEDS: ONDANSETRON 4MG/2ML VIAL 4 MG IV (21:31)
[2023-06-16] MEDS: KETOROLAC 30MG/ML VIAL 15 MG IV (21:31)
[2023-06-16] MEDS: OXYCODONE 5MG IMMEDIATE RELEASE TABLET 10 MG PO (22:39)
--- NOTE | 2023-06-16 22:56 | PC.NURSE ---
PC to [facility] re transfer, waiting for return call. Images to be power shared and disc made
--- NOTE | 2023-06-16 23:23 | PC.NURSE ---
Per Dr Verma, long arm splint placed on the pts Left arm and a Sling placed on the Right arm to limit movement of both extremities. Pt advised on care of both. CR
[2023-06-17] VITALS (7 sets, daily range): BP systolic 117–158; BP diastolic 73–95; PULSE 64–73; RESP 16–18; TEMP 36.6–37; O2SAT 87–94; BMI 32.0; BMI 32.3
--- NOTE | 2023-06-17 | ECG_ITS ---
APPROVED REPORT Exam: Resting ECG HR:57 bpm ECG Measurements Heart Rate 57 AXES IN 167 P 29 QRSd 75 QRS -41 QT 416 T -30 QTc 411 Conclusion SINUS BRADYCARDIA LEFT AXIS DEVIATION [QRS AXIS < -30] VOLTAGE CRITERIA FOR LVH [MEETS CRITERIA IN ONE OF: R(aVL), S(V1), R(V5), R(V5/V6)+S(V1)] MINIMAL ST DEPRESSION [0.025+ mV ST DEPRESSION] ABNORMAL ECG UNCONFIRMED REPORT Electronically signed by : Colin St MD 06/17/2023 14:25:32
--- NOTE | 2023-06-17 00:05 | PC.NURSE ---
PATIENT ADMITTED TO 204 OBSERVATION WITH DX OF R HUMERUS FX AND L SUPRACONDYLAR FX TO SERVICE OF HOSPITALIST.
--- NOTE | 2023-06-17 00:15 | EXP.HP ---
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 She reports that she bent over to water her [place] when her foot got caught on a rug, and she fell forward onto both upper extremities. She felt immediate pain in her left elbow and her right upper extremity. She denies any head injury or loss of consciousness. She denies any numbness, tingling, or other concerns. She was well prior to the fall. She takes aspirin but no blood thinners. Admitted for observation. [facility] Disclaimer: The information contained in this section may have been updated after the patient was seen, as this information can be updated by other users. Medical History (Updated 06/17/23 @ 02:12 by Melita Castro RN) Breast cancer Surgical History (Updated 06/17/23 @ 02:15 by Melita Castro RN) S/P lumpectomy, left breast Social History Smoking Status: Unknown if ever smoked alcohol intake: never current occupational status: retired Travel in the last 8 weeks: None adopted: No Review of Systems Review of Systems Review of systems:: pertinent systems reviewed and negative unless documented below Meds Home Medications and Allergies Home Medications Medication Instructions Recorded Confirmed Type aspirin 81 mg chewable tablet 81 mg PO DAILY heart health 07/09/22 06/17/23 History carvedilol 3.125 mg tablet 3.125 mg PO BID htn 07/09/22 06/17/23 History ezetimibe 10 mg-simvastatin 40 mg 1 each PO DAILY htn 07/09/22 06/17/23 History tablet furosemide 40 mg tablet 40 mg PO DAILY Edema 07/09/22 06/17/23 History levothyroxine 50 mcg tablet 50 mcg PO DAILY hypothyroid 07/09/22 06/17/23 History lisinopril 10 mg tablet 10 mg PO DAILY htn 07/09/22 06/17/23 History meloxicam 7.5 mg tablet 7.5 mg PO DAILY Pain 07/09/22 06/17/23 History metoclopramide HCl 10 mg tablet 10 mg PO DAILY Nausea & vomiting 07/09/22 06/17/23 History omeprazole 20 mg tablet,delayed 20 mg PO DAILY GERD 07/09/22 06/17/23 History release New Prescriptions to Start Prescriptions: Allergies Allergy/AdvReac Type Severity Reaction Status Date / Time No Known Allergies Allergy Verified 06/17/23 01:54 Exam Data for Last 24 hours Vital signs and Labs for Last 24 Hours: Temp Pulse Resp BP Pulse Ox O2 Del Method 97.8 F 70 16 150/70 H 96 Room Air 06/16/23 20:24 06/16/23 20:24 06/16/23 20:24 06/16/23 20:24 06/16/23 20:24 06/16/23 20:24 I & O for Last 24 hours: Intake & Output 06/14/23 06/15/23 06/16/23 06/17/23 23:59 23:59 23:59 23:59 Weight 81.647 kg Constitutional Constitutional: mild distress *Routine HEENT Exam Head: Present normocephalic and atraumatic Eye: Present EOMI, PERRL and normal accommodation ENT: Present mucous membranes moist *Routine Neck Exam Neck: Present supple, full ROM and trachea midline *Routine Respiratory Exam Respiratory: Present normal respiratory effort, able to speak in complete sentences and symmetric chest movement *Routine Cardiovascular Exam Cardiovascular: Present RRR, Normal S1 and Normal S2 *Routine Abdominal Exam Abdominal: Present soft, normoactive bowel sounds and obese *Routine Rectal Exam Rectal:: other *Routine Genitalia Exam Genitalia:: other *Routine Extremities Exam Extremities: Present edema Comments: Bilateral upper extremities limited ROM, cast to the left elbow. splint on the right *Routine Skin Exam Skin: Present intact, dry and warm *Routine Neurological Exam Neurological: Present alert, oriented X3, normal reflexes and normal speech Routine Psychiatric Exam Psychiatric: Present normal affect, normal thought process, cooperative, good insight and good judgment H&P: Result Imaging and Cardiology CT scan - head: Status: image reviewed by me and final report Additional comments: All radiology of bothe of her upper extremity has been reviewed by me. I agree with the final report. Assessment and Plan *Assessment and plan (1) Closed fracture of proximal end of right humerus: Status: Acute Qualifiers: Encounter type: initial encounter Fracture morphology: unspecified fracture morphology Qualified Code(s): S42.201A - Unspecified fracture of upper end of right humerus, initial encounter for closed fracture Category: Medical Code(s): S42.201A - Unspecified fracture of upper end of right humerus, initial encounter for closed fracture (2) Closed supracondylar fracture of left elbow: Status: Acute Qualifiers: Encounter type: initial encounter Qualified Code(s): S42.412A - Displaced simple supracondylar fracture without intercondylar fracture of left humerus, initial encounter for closed fracture Category: Medical Code(s): S42.412A - Displaced simple supracondylar fracture without intercondylar fracture of left humerus, initial encounter for closed fracture (3) HTN (hypertension): Status: Acute Qualifiers: Hypertension type: primary hypertension Qualified Code(s): I10 - Essential (primary) hypertension Category: Medical Code(s): I10 - Essential (primary) hypertension (4) HLD (hyperlipidemia): Status: Acute Qualifiers: Hyperlipidemia type: unspecified Qualified Code(s): E78.5 - Hyperlipidemia, unspecified Category: Medical Code(s): E78.5 - Hyperlipidemia, unspecified (5) Hypothyroidism: Status: Acute Qualifiers: Hypothyroidism type: unspecified Qualified Code(s): E03.9 - Hypothyroidism, unspecified Category: Medical Code(s): E03.9 - Hypothyroidism, unspecified (6) Osteoporosis: Status: Acute Qualifiers: Encounter type: initial encounter Osteoporosis type: unspecified Presence of current pathological fracture: with current pathological fracture Qualified Code(s): M80.00XA - Age-related osteoporosis with current pathological fracture, unspecified site, initial encounter for fracture Category: Medical Code(s): M81.0 - Age-related osteoporosis without current pathological fracture (7) CAD (coronary artery disease): Status: Acute Qualifiers: Associated angina: with stable angina Coronary Disease-Associated Artery/Lesion type: unspecified vessel or lesion type [place] vs. 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 Patient states that she never lost consciousness, she fall forward landing with both arms. Upon arrival to the ER x-ray of bilateral upper extremities was performed. Positive for closed fracture of the proximal end of the right humerus, and supracondylar of the left elbow. Labs are unremarkable. Patient leaving the foster home by herself, unable to self-care. Discussion was made with the ER doctor, after orthopedic has been consulted, and overlook at the imaging, they agree for medical management. Patient will be admitted for observation and PT/OT evaluation. Plan as follows: -Close fracture of proximal right lower with closed Supracondylar fracture of the left elbow secondary to mechanical ground-level fall: Syncope is less likely since patient never lose consciousness. She fall while gardening and landed with the both. Denies hitting head. CT of the head was reviewed. Negative for acute intracranial process or trauma. Disposition admitted for observation after discussion with the orthopedic and agree with medical management of the fractures. Monitor vital signs per unit protocol. Pain management with Tylenol and morphine as needed, EKG with pending, UA pending. PT OT consults for treatment and eval. monitor for vital signs and pain. Monitor for compartment syndrome. Patient might follow-up as an outpatient for close orthopedic follow-up. -Chronic conditions: Hypertension, hyperlipidemia, hypothyroidism, osteoporosis and CAD Please reconcile and resume home meds. Labs reviewed. TSH normal. Vitamin D in the normal range. Conditions are seem to be stable. On aspirin and statin and Synthroid. -Unable to care for self: Patient lives at home alone (in [place]), due to bilateral extremity upper extremity fracture patient is less likely to self-care. PT/OT consulted for recommendation. manager transition will be consulted Sammi for DVT prophylaxis. Full code. Patient agreed with the plan. We will continue to monitor. Rounded on patient after nurse practitioner. Personally examined and interviewed patient. Agree with exam findings and care plan as documented.
--- NOTE | 2023-06-17 00:47 | PC.NURSE ---
Report called to [facility]
--- NOTE | 2023-06-17 00:50 | PC.NURSE ---
0040 received report from leola paz rn/ed. 82 yo female s/p fall at home fracturing both arm. r arm in sling and splint on left arm. NKA. May come by w/c.
--- NOTE | 2023-06-17 01:02 | PC.NURSE ---
pt arrived to floor at this time
--- NOTE | 2023-06-17 05:18 | PC.NURSE ---
PATIENT HAS LEFT ARM IN SLING. HAS SPLINT/JONATHAN WRAP TO RIGHT ARM. REQUIRES ASSISTANCE GETTING IN/OUT OF BED. AND GOING TO REST ROOM. A/O X 4. PLEASANT AND COOPERATIVE. NO C/O PAIN.
[2023-06-17 07:12] LABS: Basophils % 0.1 % (0.1-2.0); Eosinophils # 0.1 K/mm3 (0.0-0.4); Eosinophils % 0.6 % (0.1-12.0); Hematocrit 43.6 % (37.0-47.0); Hemoglobin 13.8 g/dL (12.2-16.2); Lymphocytes # 0.9 K/mm3 (0.7-4.5); Lymphocytes % 9.4 % (10-50); Mean Corpuscular HGB Conc 31.6 g/dL (31.8-35.4); Mean Corpuscular Hemoglobin 30.8 pg (27.0-31.2); Mean Corpuscular Volume 97.4 fl (81-99); Mean Platelet Volume 8.4 fl (7.4-10.4); Monocytes # 0.6 K/mm3 (0.1-1.0); Monocytes % 6.2 % (1.7-9.3); Neutrophils # 8.4 K/mm3 (1.8-7.8); Neutrophils % 83.7 % (37.0-80.0); Platelet Count 357 K/mm3 (142-424); Red Blood Count 4.47 M/mm3 (4.20-5.40); Red Cell Distribution Width 13.5 % (11.5-17.5)
[2023-06-17] MEDS: MORPHINE 4MG/ML SYRINGE 4 MG IV (07:17)
[2023-06-17 07:21] LABS: Alanine Aminotransferase 580 U/L (12-78); Albumin Level 4.1 g/dl (3.5-5.0); Albumin/Globulin Ratio 1.6 (1.1-1.8); Alkaline Phosphatase 139 U/L (38-126); Anion Gap 8.6 mEq/L (5-15); Bilirubin,Total 1.1 mg/dl (0.2-1.3); Blood Urea Nitrogen 21 mg/dl (7-17); Calcium 9.4 mg/dl (8.4-10.2); Carbon Dioxide 31 mmol/L (22.0-30.0); Chloride 104 mmol/L (98-107); Creatinine Clearance Estimated 57 mL/min (50-200); Estimated Glomerular Filt Rate 60 ml/min (>60); GFR (African American) 73 ML/MIN (>60); Globulin 2.5 g/dL (1.3-3.2); Glucose 156 mg/dl (74-100); Potassium 4.6 mmoL/L (3.5-5.1); Sodium 139 mmol/L (136-145); Total Protein,Serum 6.6 g/dl (6.3-8.2)
[2023-06-17 07:31] LABS: Aspartate Amino Transferase 813 U/L (14-36)
[2023-06-17] MEDS: ONDANSETRON 4MG/2ML VIAL 4 MG IV (09:15)
[2023-06-17] MEDS: ENOXAPARIN 40MG/0.4ML SYRINGE 40 MG SQ (09:22)
--- NOTE | 2023-06-17 10:09 | HMH.PHAINT1 ---
Pharmacy Intervention Comments: MEDICATION RECONCILIATION COMPLETED ON PATIENT USING EXTERNAL FILL HISTORY FROM PHARMACY. -[facility], TERESSAD
[2023-06-17] MEDS: ACETAMINOPHEN 325MG TAB 650 MG PO (11:09)
[2023-06-17] MEDS: LEVOTHYROXINE 50MCG (0.05MG) TAB 50 MCG PO (11:09)
[2023-06-17] MEDS: PANTOPRAZOLE 40MG VIAL 40 MG IV (15:04)
--- NOTE | 2023-06-17 16:14 | HMH.PTEV ---
Physical Therapy Evaluation Rehab PT IP Evaluation Start: 06/17/23 00:13 Freq: ONCE Status: Active Protocol: Document 06/17/23 15:56 NELL (Rec: 06/17/23 16:13 NELL [id number]) Subjective/History History History Patient is an 82 year old female admitted to [facility] 06/16/23 secondary to BUE fractures after a fall at home. Patient reports that she was watering plants inside her house when she bent over, fell forward, and tried to catch herself with both arms. Imaging indicats L supracondylar humerus and R displaced proximal humerus fracture displaced. Patient to consult with ortho tomorrow secondary to no coverage this weekend. Patient has been place in a R shoulder sling and L posterior UE splint. Patient previously lived at home alone ([place] at [facility]) and was independent with all ADL's/ ambulatory activity. Subjective Subjective I'm ok with going somewhere to get better before I go home . Rehab PT IP Eval Objective Appearance Patient Behavior Appropriate,Cooperative Patient Orientation Person,Place,Day of Week Difficulty following instructions none Speech Pattern Clear,Appropriate Ambulation Patient Able to Ambulate Yes Ambulation Observation IP General Gait Pattern Observation No Deviations/Normal Ambulation Distance (feet) 10 Ambulation Assistive Device None Ambulation Ability Contact Guard/Hand Hold Balance Ability to Arise Able, w/o using arms Sitting Balance Steady, safe Standing Balance Steady, wide stance Dynamic Sitting Balance Ability Normal Dynamic Standing Balance Ability Good Transfers Bed Transfer Ability Minimal x 1 (25% assist) Sit to Stand Bed Transfer Ability Minimal x 1 (25% assist) Pain Left Elbow Pain Intensity 2 Right Shoulder Pain Intensity 0 ROM RUE PT ROM Status ABN Abnormal ROM Comment Patient in sling. No movement secondary to orthopedic precautions LUE PT ROM Status ABN Abnormal ROM Comment Patient splinted MMT All Extremities PT MMT WFL Rehab PT IP prob,goals,plan Problems Date of Evaluation: 06/17/23 PT IP Problems Bed Mobility,Transfers,Gait, Balance,Self care,Safety Rehab Potential Rehab Potential Good Equipment Needs Assistive Devices None / NA Plan PT Intervention Plan Bed Mobility,Transfers,Gait, Balance,Self care,Safety, Therapeutic Exercise PT Plan Frequency BID Duration LOS Discharge Goals Bed Transfer Ability Supervision/Stand by Sit to Stand Chair Transfer Ability Contact Guard/Hand Hold Ambulation Assistive Device None Ambulation Distance (feet) 20 Discharge Plan PT Discharge Plan PT suggests patient to be seen as indicated prior to DC to SNF/rehab facility. G -code Required Yes Eval Complexity Eval Charge Codes 37790 - High Complexity G Codes PT Current Status Self Care PT Current Status Modifier CL-At least 60% but less than 80% impaired, limited or restricted PT Goal Status Carry PT Goal Status Modifer CL-At least 60% but less than 80% impaired, limited or restricted PHYSICIAN CERTIFICATION: I certify the specified therapy services for Monica Mora are required, authorized, and reviewed every 30 days.
--- NOTE | 2023-06-17 16:24 | PC.NURSE ---
Patient's son requests that patient be discharged to rehab at [facility].
--- NOTE | 2023-06-17 18:27 | PC.NURSE ---
VS stable, pain relieved with IV pain medication. Nausea noted and zofran given. Patient then ate half a sandwhich for lunch and vomited agian. Dr. Clayton notified and protonix ordered and patient put on clear liquid diet. No emesis noted after patient drank chicken broth and diet coke. Patient able to ambulate with one assist to toilet twice during shift.
[2023-06-17] MEDS: PANTOPRAZOLE 40MG TABLET 40 MG PO (20:29)
[2023-06-18 04:00] VITALS: BP 191/75; PULSE 76; RESP 18; TEMP 37.1; O2SAT 90; BMI 32.5
--- NOTE | 2023-06-18 05:47 | PC.NURSE ---
PATIENT REQUIRES ASSIST GETTING IN/OUT OF BED. HAS RESTED WELL THIS SHIFT. NO C/O PAIN VOICED. LEFT ARM IN SLING AND R ARM IN SPLINT/JONATHAN WRAP.
[2023-06-18 06:47] LABS: Basophils % 0.3 % (0.1-2.0); Eosinophils # 0.1 K/mm3 (0.0-0.4); Lymphocytes # 1.4 K/mm3 (0.7-4.5); Lymphocytes % 14.6 % (10-50); Mean Corpuscular HGB Conc 31.3 g/dL (31.8-35.4); Mean Corpuscular Hemoglobin 30.8 pg (27.0-31.2); Mean Corpuscular Volume 98.4 fl (81-99); Mean Platelet Volume 8.4 fl (7.4-10.4); Monocytes # 0.9 K/mm3 (0.1-1.0); Monocytes % 9.5 % (1.7-9.3); Neutrophils # 7.1 K/mm3 (1.8-7.8); Neutrophils % 74.7 % (37.0-80.0); Platelet Count 301 K/mm3 (142-424); Red Blood Count 3.86 M/mm3 (4.20-5.40); Red Cell Distribution Width 13.5 % (11.5-17.5); White Blood Count 9.4 K/mm3 (4.8-10.8)
[2023-06-18] MEDS: LEVOTHYROXINE 50MCG (0.05MG) TAB 50 MCG PO (06:50)
[2023-06-18 06:56] LABS: Alanine Aminotransferase 369 U/L (12-78); Albumin Level 3.7 g/dl (3.5-5.0); Albumin/Globulin Ratio 1.5 (1.1-1.8); Alkaline Phosphatase 121 U/L (38-126); Anion Gap 7.7 mEq/L (5-15); Aspartate Amino Transferase 223 U/L (14-36); Bilirubin,Total 1.4 mg/dl (0.2-1.3); Blood Urea Nitrogen 21 mg/dl (7-17); Calcium 9.1 mg/dl (8.4-10.2); Carbon Dioxide 31 mmol/L (22.0-30.0); Chloride 103 mmol/L (98-107); Creatinine Clearance Estimated 58 mL/min (50-200); Estimated Glomerular Filt Rate 69 ml/min (>60); GFR (African American) 83 ML/MIN (>60); Globulin 2.5 g/dL (1.3-3.2); Glucose 110 mg/dl (74-100); Magnesium 2.1 mg/dl (1.6-2.3); Potassium 3.7 mmoL/L (3.5-5.1); Sodium 138 mmol/L (136-145); Total Protein,Serum 6.2 g/dl (6.3-8.2)
[2023-06-18 07:36] VITALS: BP 147/93; PULSE 92; RESP 19; TEMP 36.7; O2SAT 92
[2023-06-18 07:49] LABS: Hemoglobin 11.9 g/dL (12.2-16.2)
[2023-06-18 08:00] VITALS: O2SAT 92
[2023-06-18] MEDS: CARVEDILOL 3.125MG TABLET 3.125 MG PO (08:55)
[2023-06-18] MEDS: ENOXAPARIN 40MG/0.4ML SYRINGE 40 MG SQ (08:55)
[2023-06-18] MEDS: LISINOPRIL 10MG TABLET 10 MG PO (08:56)
[2023-06-18] MEDS: KETOROLAC 30MG/ML VIAL 15 MG IV (09:12)
--- NOTE | 2023-06-18 11:00 | HMH.OTEV ---
OT Inpatient Evaluation Rehab OT IP Evaluation Start: 06/18/23 10:37 Freq: ONCE Status: Active Protocol: Document 06/18/23 10:55 [facility] (Rec: 06/18/23 11:00 [id number] Rehab OT IP Assessment Subjective History Pt oriented x 3 on arrival. Pt agreeable to engage in therapy evaluation. Patient is an 82 year old female admitted to [facility] 06/16/23 secondary to BUE fractures after a fall at home. Patient reports that she was watering plants inside her house when she bent over, fell forward, and tried to catch herself with both arms. Imaging indicats L supracondylar humerus and R displaced proximal humerus fracture displaced. Patient to consult with ortho. Patient has been placed in a R shoulder sling and L posterior UE splint. Patient previously lived at home alone ([place] at [facility]) and was independent with all ADL's/ambulatory activity. Subjective I am definitely going to need help. Objective Patient Orientation Person,Place,Birthday Upper Extremity Gross ROM Sev Limitation >75% Shoulder ROM Limitations Pain Elbow ROM Limitations Pain Wrist Limitations of Range of Motion Pain Transfer Training Sit/Stand Transfer Assist Level Minimal x 1 (25% assist) Chair Transfer Ability Minimal x 1 (25% assist) Chair Transfer Technique Sit to/from Ambulatory Rehab OT IP prob,goals,plan Problems Date of Evaluation: 06/18/23 OT IP Problems Bed Mobility,Transfers,Balance ,Self care,Safety Rehab Potential Rehab Potential Good Equipment Needs Assistive Devices None / NA Plan OT intervention Plan Bed Mobility,Transfers,Balance ,Self care,Safety,Therapeutic Exercise OT Plan Frequency BID Duration LOS Discharge Goals Bed Mobility Ability Assistance x1 Sit to Stand Chair Transfer Ability Minimal x 1 (25% assist) Chair Transfer Ability Minimal x 1 (25% assist) Chair Transfer Technique Sit to/from Ambulatory Chair Transfer Assistive Devices None Feeding Ability Assist with Tray Set Up Lower Body Dressing Ability Assistance X1 Upper Body Dressing Ability Assistance X1 Bathing Ability Assistance x1 Performing Toilet Hygiene Ability Assistance X1 Overall Commode/Toilet Transfer Ability Assistance x1 Commode/Toilet Transfer Technique Sit to/from Ambulatory Oral Care Ability With Assistance decrease in endurance No Discharge Plan OT Discharge Plan Pt will continue to be seen by OT services while at [facility]. Therapist recommends patient complete short term rehab following hospital stay. Short term rehab is important for patient to improve strength, safety, endurance, ADL independence, and functional transfers to reach PLOF. Eval Complexity Eval Charge Codes 79640 - Moderate Complexity G Codes G -code Required No PHYSICIAN CERTIFICATION: I certify the specified therapy services for Monica Mora are required, authorized, and reviewed every 30 days.
--- NOTE | 2023-06-18 12:08 | PC.NURSE ---
Spoke with Chrissie at [facility] report given on pt. stability for room assignment. Pt. to be transferred to [address] room S303 at [facility].. Nurse read back and verified room information.
--- NOTE | 2023-06-18 12:12 | PC.NURSE ---
courtesy tech note: pt is siting up in chair with family at helping her with her lunch tray.
--- NOTE | 2023-06-18 12:49 | P.DS_ITS ---
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 She reports that she bent over to water her [place] when her foot got caught on a rug, and she fell forward onto both upper extremities. She felt immediate pain in her left elbow and her right upper extremity. She denies any head injury or loss of consciousness. She denies any numbness, tingling, or other concerns. She was well prior to the fall. She takes aspirin but no blood thinners. Admitted for observation. 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 Patient states that she never lost consciousness, she fall forward landing with both arms. Upon arrival to the ER x-ray of bilateral upper extremities was performed. Positive for closed fracture of the proximal end of the right humerus, and supracondylar of the left elbow. Labs are unremarkable. Patient lives in an independent living community. Lives by herself. ER initially contacted , recommended medical management. Patient was admitted for therapy consults and to assist with possible placement. Problems were addressed as follows during admission. -Close fracture of proximal right lower with closed Supracondylar fracture of the left elbow secondary to mechanical ground-level fall: After discussion, concerned the patient tripped over a rug at home. Did not have any loss of consciousness. CT of head obtained on arrival, negative. ER initially consulted for transfer for orthopedics as we did not have orthopedics as our institution over the weekend. They recommended medical management and declined transfer. As patient was still at our facility, Sunday, discussed case with our on-call orthopedic surgeon. Given both arms being impacted and severity of injury, recommended transfer to [facility] for right TSA and surgery on left elbow To improve functionality. Patient was graciously excepted by [facility] for further management. During hospitalization, morphine caused nausea and vomiting. Had significant pain improvement with Toradol. PT and OT evaluated, at this time recommended placement, recommend reevaluation with PT and OT after surgery. Patient's goal is to return to her home independently. -Chronic conditions: Hypertension, hyperlipidemia, hypothyroidism, osteoporosis and CAD Continued home med and losing aspirin 81 mg daily levothyroxine 50 mcg daily, lisinopril 10 mg daily, 20 Jeronimo daily, and Lasix 40 mg daily. Lovenox for DVT prophylaxis Full code. Stable for discharge to [facility] for further management. Excepted by Dr. Luis and Dr. Gaffney. Exam Data for Last 24 hours Vital signs and Labs for Last 24 Hours: Temp Pulse Resp BP Pulse Ox O2 Del Method O2 Flow Rate 98.0 F 92 H 19 147/93 H 92 L Room Air 2 06/18/23 07:36 06/18/23 07:36 06/18/23 07:36 06/18/23 07:36 06/18/23 08:00 06/18/23 10:19 06/17/23 07:26 Laboratory Results - last 24 hr 06/18/23 05:53: WBC 9.4, RBC 3.86 L, Hgb 11.9 L D, Hct 38.0, MCV 98.4, MCH 30.8, MCHC 31.3 L, RDW 13.5, Plt Count 301, MPV 8.4, Neut % (Auto) 74.7, Lymph % (Auto) 14.6, Howell % (Auto) 9.5 H, Eos % (Auto) 1.0, Baso % (Auto) 0.3, Neut # (Auto) 7.1, Lymph # (Auto) 1.4, Howell # (Auto) 0.9, Eos # (Auto) 0.1, Baso # (Auto) 0.0, Sodium 138, Potassium 3.7, Chloride 103, Carbon Dioxide 31 H, Anion Gap 7.7, BUN 21 H, Creatinine 0.80, Estimated Creat Clear 58, Estimated GFR 69, Est GFR ( Amer) 83, Glucose 110 H D, Calcium 9.1, Magnesium 2.1, Total Bilirubin 1.4 H, AST 223 H D, ALT 369 H*, Alkaline Phosphatase 121, Total Protein 6.2 L, Albumin 3.7, Globulin 2.5, Albumin/Globulin Ratio 1.5 I & O for Last 24 hours: Intake & Output 06/15/23 06/16/23 06/17/23 06/18/23 23:59 23:59 23:59 23:59 Intake Total 780 / 1020 720 / 720 Output Total 401 / 401 200 / 200 Balance 379 / 619 520 / 520 Weight 81.647 kg 83.915 kg 84.538 kg Constitutional Constitutional: no acute distress and obese *Routine HEENT Exam Head: Present normocephalic Eye: Present EOMI and PERRL ENT: Present mucous membranes moist *Routine Neck Exam Neck: Present supple; Absent lymphadenopathy *Routine Respiratory Exam Respiratory: Present CTA bilaterally; Absent rhonchi, wheezes or crackles *Routine Cardiovascular Exam Cardiovascular: Present RRR *Routine Abdominal Exam Abdominal: Present soft and normoactive bowel sounds; Absent tenderness *Routine Rectal Exam Patient deferred: visual exam *Routine Exam Patient deferred: external exam *Routine Extremities Exam Extremities: Absent cyanosis, clubbing or edema Comments: Right arm in sling, neurovascularly intact in right hand. Left arm in cast. Neurovascularly intact in left hand. *Routine Skin Exam Skin: Present warm; Absent rash *Routine Neurological Exam Neurological: Present alert, oriented X3 and moving all extremities; Absent altered mental status Routine Psychiatric Exam Psychiatric: Present normal affect Results Data Completed and Pending Labs on day of discharge: Labs from last 24 hours 06/18/23 05:53 WBC 9.4 RBC 3.86 L Hgb 11.9 L D Hct 38.0 MCV 98.4 MCH 30.8 MCHC 31.3 L RDW 13.5 Plt Count 301 MPV 8.4 Neut % (Auto) 74.7 Lymph % (Auto) 14.6 Howell % (Auto) 9.5 H Eos % (Auto) 1.0 Baso % (Auto) 0.3 Neut # (Auto) 7.1 Lymph # (Auto) 1.4 Howell # (Auto) 0.9 Eos # (Auto) 0.1 Baso # (Auto) 0.0 Sodium 138 Potassium 3.7 Chloride 103 Carbon Dioxide 31 H Anion Gap 7.7 BUN 21 H Creatinine 0.80 Estimated Creat Clear 58 Estimated GFR 69 Est GFR ( Amer) 83 Glucose 110 H D Calcium 9.1 Magnesium 2.1 Total Bilirubin 1.4 H AST 223 H D ALT 369 H* Alkaline Phosphatase 121 Total Protein 6.2 L Albumin 3.7 Globulin 2.5 Albumin/Globulin Ratio 1.5 DS: Diagnosis Discharge Diagnosis (1) Closed fracture of proximal end of right humerus: Status: Acute Code(s): S42.201A - Unspecified fracture of upper end of right humerus, initial encounter for closed fracture Qualifiers: Encounter type: initial encounter Fracture morphology: unspecified fracture morphology Qualified Code(s): S42.201A - Unspecified fracture of upper end of right humerus, initial encounter for closed fracture (2) Closed supracondylar fracture of left elbow: Status: Acute Code(s): S42.412A - Displaced simple supracondylar fracture without intercondylar fracture of left humerus, initial encounter for closed fracture Qualifiers: Encounter type: initial encounter Qualified Code(s): S42.412A - Displaced simple supracondylar fracture without intercondylar fracture of left humerus, initial encounter for closed fracture (3) HTN (hypertension): Status: Acute Code(s): I10 - Essential (primary) hypertension Qualifiers: Hypertension type: primary hypertension Qualified Code(s): I10 - Essential (primary) hypertension (4) HLD (hyperlipidemia): Status: Acute Code(s): E78.5 - Hyperlipidemia, unspecified Qualifiers: Hyperlipidemia type: unspecified Qualified Code(s): E78.5 - Hyperlipidemia, unspecified (5) Hypothyroidism: Status: Acute Code(s): E03.9 - Hypothyroidism, unspecified Qualifiers: Hypothyroidism type: unspecified Qualified Code(s): E03.9 - Hypothyroidism, unspecified (6) Osteoporosis: Status: Acute Code(s): M81.0 - Age-related osteoporosis without current pathological fracture Qualifiers: Osteoporosis type: unspecified Presence of current pathological fracture: with current pathological fracture Encounter type: initial encounter Qualified Code(s): M80.00XA - Age-related osteoporosis with current pathological fracture, unspecified site, initial encounter for fracture (7) CAD (coronary artery disease): Status: Acute Code(s): I25.10 - Atherosclerotic heart disease of [place] coronary artery without angina pectoris Qualifiers: Coronary Disease-Associated Artery/Lesion type: unspecified vessel or lesion type [place] vs. transplanted heart: [place] heart Associated angina: with stable angina Qualified Code(s): I25.118 - Atherosclerotic heart disease o f [place] coronary artery with other forms of angina pectoris (8) Unable to care for self: Status: Acute Code(s): Z78.9 - Other specified health status Meds Home Medications and Allergies Home Medications Medication Instructions Recorded Confirmed Type aspirin 81 mg chewable tablet 81 mg PO DAILY heart health 07/09/22 06/17/23 History carvedilol 3.125 mg tablet 3.125 mg PO BID High Blood Pressure 07/09/22 06/17/23 History furosemide 40 mg tablet 40 mg PO DAILY Edema 07/09/22 06/17/23 History levothyroxine 50 mcg tablet 50 mcg PO DAILY Thyroid 07/09/22 06/17/23 History lisinopril 10 mg tablet 10 mg PO DAILY High Blood Pressure 07/09/22 06/17/23 History omeprazole 20 mg tablet,delayed 20 mg PO DAILY Acid Reflux 07/09/22 06/17/23 History release acetaminophen 325 mg tablet 650 mg PO Q4HP PRN Fever Or Mild 06/18/23 Rx Pain (1-3) #0 tabs docusate sodium 100 mg capsule 100 mg PO DAILYP PRN Constipation 06/18/23 Rx #0 caps ketorolac 30 mg/mL (1 mL) 15 mg (0.5 mL) IV Q6HP PRN 06/18/23 Rx injection solution Moderate To Severe Pain (4-10) #0 mL ondansetron HCl (PF) 4 mg/2 mL 4 mg (2 mL) IV Q6HP PRN Nausea #0 06/18/23 Rx injection solution mL New Prescriptions to Start Prescriptions: Allergies Allergy/AdvReac Type Severity Reaction Status Date / Time No Known Allergies Allergy Verified 06/17/23 01:54 Discharge Plan Disposition Patient Disposition: Xfer Short-Term Hosp Condition: Good Discharge Order Discharge Orders: Discharge Order (Routine); Ordered 06/18/23 Ordered By: Mil Clayton Follow up Plan Prescriptions/Medication Reconciliation: New acetaminophen 325 mg Tablet 650 mg PO Q4HP PRN (Reason: Fever Or Mild Pain (1-3)) Qty: 0 0RF ketorolac 30 mg/mL (1 mL) Solution 15 mg IV Q6HP PRN (Reason: Moderate To Severe Pain (4-10)) Qty: 0 0RF docusate sodium 100 mg Capsule 100 mg PO DAILYP PRN (Reason: Constipation) Qty: 0 0RF ondansetron HCl (PF) 4 mg/2 mL Solution 4 mg IV Q6HP PRN (Reason: Nausea) Qty: 0 0RF Continued furosemide 40 MG tablet 40 mg PO DAILY carvedilol 3.125 MG tablet 3.125 mg PO BID levothyroxine 50 MCG tablet 50 mcg PO DAILY lisinopril 10 MG tablet 10 mg PO DAILY aspirin 81 MG tablet,chewable 81 mg PO DAILY omeprazole 20 MG tablet,delayed release (DR/EC) 20 mg PO DAILY Discontinued meloxicam 7.5 MG tablet 7.5 mg PO DAILY Patient Comments: takes only when needed metoclopramide HCl 10 MG tablet 10 mg PO HS ezetimibe-simvastatin 10-40 mg tablet 1 tab PO DAILY Patient Comments: TAKE ONE TABLET BY MOUTH EVERY DAY Problem Reconciliation Problems Reviewed?: Yes Patient Discharge Instructions ACTIVITY: Continue current activity DIET: continue same diet Stand Alone Forms: Transfer Record Patient Instructions: DI for Elbow Fracture, How to Prevent Falls, DI for Humeral Fracture Providers Primary Care Provider: Bryant Shell Admit Provider: Mil Clayton Attending Provider: Mil Clayton
--- NOTE | 2023-06-18 13:05 | PC.NURSE ---
Report given to Sue NGO at [facility].
--- NOTE | 2023-06-18 13:55 | PC.NURSE ---
Pt. left unit via stretcher accompanied by EMS personnel x2.
== END 2023-06-18 13:55 | disposition short-term general hospital (02) ==
LOC: ER 23:53 → 2ND 06-17 01:23
PROVIDERS: Nurse Practitioner Family; Admitting Provider Internal Medicine Adolescent Medicine; Emergency Provider Emergency Medicine; PCP Family Medicine; Visit Provider Internal Medicine Adolescent Medicine
DX: S42.201A Unspecified fracture of upper end of right humerus, initial encounter for closed fracture (principal); S42.412A Displaced simple supracondylar fracture without intercondylar fracture of left humerus, initial encounter for closed fracture; I10 Essential (primary) hypertension; E78.5 Hyperlipidemia, unspecified; E03.9 Hypothyroidism, unspecified; I25.118 Atherosclerotic heart disease of native coronary artery with other forms of angina pectoris; W01.0XXA Fall on same level from slipping, tripping and stumbling without subsequent striking against object, initial encounter; Y92.017 Garden or yard in single-family (private) house as the place of occurrence of the external cause
CPT/HCPCS: 36415; 70450; 72125; 73060; 73070; 73080; 73090; 80053; 83735; 85025; 93005; 97116; 97163; 97166; 99285; G0378; J2405

== ENCOUNTER 2023-11-19 10:42 | Emergency (ER) | payer MEDICARE, OTHER, BC, SELFPAY ==
[2023-11-19 10:43] VITALS: BP 177/98; PULSE 59; RESP 18; TEMP 36.4; O2SAT 96; BMI 26.5
[2023-11-19 11:00] VITALS: BP 161/82; PULSE 58; O2SAT 97
--- NOTE | 2023-11-19 11:09 | CT_ITS ---
PROCEDURE INFORMATION: Exam: CT Abdomen And Pelvis Without Contrast Exam date and time: 11/19/2023 11:22 AM Age: 83 years old Clinical indication: Abdominal pain; Acute; Additional info: R sided stone concern TECHNIQUE: Imaging protocol: Computed tomography of the abdomen and pelvis without contrast. Radiation optimization: All CT scans at this facility use at least one of these dose optimization techniques: automated exposure control; mA and/or kV adjustment per patient size (includes targeted exams where dose is matched to clinical indication); or iterative reconstruction. REPORTING DATA: Count of CT and Cardiac NM exams in prior 12 months: This patient has received 2 known CTs and 0 known cardiac nuclear medicine studies in the 12 months prior to the current study. COMPARISON: CT ABDOMEN PELVIS W CON 07/09/2022 11:47 PM FINDINGS: Lungs: There are minor atelectatic changes at the lung bases. Diaphragm: Small hiatal hernia. Liver: Small liver cysts at the junction of the right left lobes unchanged. Subcentimeter hypodensity lateral margin right lobe also unchanged, likely benign. Gallbladder and bile ducts: Gallbladder has been removed. There is mild associated dilatation of the common bile duct. Pancreas: Unremarkable. Main pancreatic duct is not significantly dilated. Spleen: Normal. No splenomegaly. Adrenal glands: Normal. No mass. Kidneys and ureters: There are 3 small calcifications adjacent to the right mid ureter unchanged believed to represent incidental pelvic phleboliths. There also multiple calcifications adjacent to the left mid ureter also unchanged believed to represent phleboliths. 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 Stomach and bowel: Scattered diverticuli large bowel without evidence of diverticulitis. Appendix: No evidence of appendicitis. Intraperitoneal space: Unremarkable. No free air. No significant fluid collection. Vasculature: Scattered atherosclerotic changes of the abdominal aorta and iliac vessels. No aortic aneurysm. Lymph nodes: Unremarkable. No enlarged lymph nodes. Urinary bladder: Unremarkable as visualized. Reproductive: Uterus has been removed. Bones/joints: Slight scoliosis lower lumbar spine convex to the patient's left. There is a mild compression fracture involving the superior endplate of T12 resulting in slight retropulsion of the superior endplate developed from prior study and appears recent with the mild indistinct paraspinal soft tissue swelling noted. Mild degenerative endplate changes superior endplate of L1 unchanged. Mild degenerative changes L5-S1 also stable. Cephalomedullary nail within the right hip, unchanged. Soft tissues: Otherwise unremarkable.. IMPRESSION: 1. Mild left hydronephrosis unchanged likely secondary to UPJ narrowing. 2. Mild acute compression fracture T12 vertebral body. 3. Additional nonemergent findings as above.
[2023-11-19 11:17] LABS: Basophils % 0.4 % (0.1-2.0); Eosinophils # 0.2 K/mm3 (0.0-0.4); Eosinophils % 2.3 % (0.1-12.0); Hematocrit 40.5 % (37.0-47.0); Hemoglobin 13.1 g/dL (12.2-16.2); Lymphocytes # 1.6 K/mm3 (0.7-4.5); Lymphocytes % 22.8 % (10-50); Mean Corpuscular HGB Conc 32.4 g/dL (31.8-35.4); Mean Corpuscular Hemoglobin 31.3 pg (27.0-31.2); Mean Corpuscular Volume 96.8 fl (81-99); Mean Platelet Volume 8.4 fl (7.4-10.4); Monocytes # 0.4 K/mm3 (0.1-1.0); Monocytes % 5.1 % (1.7-9.3); Neutrophils # 4.7 K/mm3 (1.8-7.8); Neutrophils % 69.4 % (37.0-80.0); Platelet Count 424 K/mm3 (142-424); Red Blood Count 4.18 M/mm3 (4.20-5.40); Red Cell Distribution Width 14.2 % (11.5-17.5); White Blood Count 6.8 K/mm3 (4.8-10.8)
[2023-11-19 11:19] LABS: Chloride 105 mmol/L (98-107); Sodium 139 mmol/L (136-145)
[2023-11-19 11:21] LABS: Alanine Aminotransferase 23 U/L (12-78); Alkaline Phosphatase 121 U/L (38-126); Aspartate Amino Transferase 28 U/L (14-36); Bilirubin,Total 0.7 mg/dl (0.2-1.3); Blood Urea Nitrogen 14 mg/dl (7-17); Creatinine Clearance Estimated 46 mL/min (50-200); Estimated Glomerular Filt Rate 69 ml/min (>60); GFR (African American) 83 ML/MIN (>60)
[2023-11-19 11:22] LABS: Albumin Level 3.8 g/dl (3.5-5.0); Albumin/Globulin Ratio 1.4 (1.1-1.8); Calcium 9.3 mg/dl (8.4-10.2); Carbon Dioxide 28 mmol/L (22.0-30.0); Globulin 2.8 g/dL (1.3-3.2); Glucose 105 mg/dl (74-100); Total Protein,Serum 6.6 g/dl (6.3-8.2)
--- NOTE | 2023-11-19 11:28 | ED_ITS ---
Discharge Plan Disposition Patient Disposition: Home, Self-Care Condition: Fair Prescriptions Prescriptions: New prednisone 20 mg tablet 40 mg PO BID 5 Days Qty: 20 0RF lidocaine 5 % adhesive patch,medicated 1 patch topical DAILY Qty: 15 0RF Rx Instructions: leave on most painful area for up to 12 hrs No Action furosemide 40 MG tablet 40 mg PO DAILY carvedilol 3.125 MG tablet 3.125 mg PO BID levothyroxine 50 MCG tablet 50 mcg PO DAILY lisinopril 10 MG tablet 10 mg PO DAILY aspirin 81 MG tablet,chewable 81 mg PO DAILY omeprazole 20 MG tablet,delayed release (DR/EC) 20 mg PO DAILY acetaminophen 325 mg Tablet 650 mg PO Q4HP PRN (Reason: Fever Or Mild Pain (1-3)) Qty: 0 0RF ketorolac 30 mg/mL (1 mL) Solution 15 mg IV Q6HP PRN (Reason: Moderate To Severe Pain (4-10)) Qty: 0 0RF docusate sodium 100 mg Capsule 100 mg PO DAILYP PRN (Reason: Constipation) Qty: 0 0RF ondansetron HCl (PF) 4 mg/2 mL Solution 4 mg IV Q6HP PRN (Reason: Nausea) Qty: 0 0RF Referrals Follow up/Referrals: Jasson Sanchez MD [Staff Physician] - See instructions Provider,MD Emily [Primary Care Provider] - See instructions Activity Restrictions/Add. Instructions Additional Instructions/Restrictions: Call your family doctor to establish care for this visit to the emergency department and schedule follow-up within 48 hours to ensure improvement. If you have any worsening of your condition or any other concerning signs or symptoms, return to the emergency department or your primary care doctor for further evaluation. Take Tylenol 1000 mg every 6 hours (4 times daily) and ibuprofen 400 mg every 6 hours (4 times daily) as needed with food and water to prevent GI upset and kidney damage. Call Dr. Sanchez's office for pain control and discuss further. Clinical Impressions Clinical Impression: Compression fracture of T12 vertebra Qualifiers: Encounter type: initial encounter Qualified Code(s): S22.080A - Wedge compression fracture of T11-T12 vertebra, initial encounter for closed fracture Discharge ED Provider: Tony Hernandez General Adult HPI General Chief complaint: PAIN Stated complaint: lower back pain(rt side) Time Seen by Provider: 11/19/23 10:48 Mode of Arrival: EMS Source of Information: Patient Limitations: No Limitations Description of Symptoms (Recalled from ER Triage Doc. by RN): pt presents to ED c/o right flank pain that started this am. pt denies burning with urination or known injury. History of Present Illness HPI narrative: 83-year-old female history of hypertension presenting with right flank pain. Woke her up from sleep today. Starts in her right flank, radiates into her right hip. Denies any trauma. Patient has been nauseated without vomiting. No dysuria, hematuria, diarrhea, constipation, fevers or chills, or any other concerns. Related Data Home Medications Medication Instructions Recorded Confirmed aspirin 81 mg chewable tablet 81 mg PO DAILY heart health 07/09/22 06/17/23 carvedilol 3.125 mg tablet 3.125 mg PO BID High Blood Pressure 07/09/22 06/17/23 furosemide 40 mg tablet 40 mg PO DAILY Edema 07/09/22 06/17/23 levothyroxine 50 mcg tablet 50 mcg PO DAILY Thyroid 07/09/22 06/17/23 lisinopril 10 mg tablet 10 mg PO DAILY High Blood Pressure 07/09/22 06/17/23 omeprazole 20 mg tablet,delayed 20 mg PO DAILY Acid Reflux 07/09/22 06/17/23 release Previous Rx's Medication Instructions Recorded acetaminophen 325 mg tablet 650 mg PO Q4HP PRN Fever Or Mild 06/18/23 Pain (1-3) #0 tabs docusate sodium 100 mg capsule 100 mg PO DAILYP PRN Constipation 06/18/23 #0 caps ketorolac 30 mg/mL (1 mL) 15 mg (0.5 mL) IV Q6HP PRN 06/18/23 injection solution Moderate To Severe Pain (4-10) #0 mL ondansetron HCl (PF) 4 mg/2 mL 4 mg (2 mL) IV Q6HP PRN Nausea #0 06/18/23 injection solution mL lidocaine 5 % topical patch 1 patch topical DAILY #15 ea 11/19/23 prednisone 20 mg tablet 40 mg PO BID 5 days #20 tabs 11/19/23 Allergies Allergy/AdvReac Type Severity Reaction Status Date / Time No Known Allergies Allergy Verified 06/17/23 01:54 [facility] Disclaimer: The information contained in this section may have been updated after the patient was seen, as this information can be updated by other users. Medical History (Updated 11/19/23 @ 13:14 by Tony Hernandez MD) Breast cancer Surgical History (Updated 06/17/23 @ 02:15 by Melita Castro RN) S/P lumpectomy, left breast Social History Smoking Status: Never smoker alcohol intake: never current occupational status: retired Travel in the last 8 weeks: None adopted: No ROS Obtained: Yes All systems reviewed & no additional complaints except as documented Physical Exam General General appearance: alert and in no apparent distress Head Head exam: atraumatic and normocephalic Eye Eye exam: Present normal appearance, PERRL and EOMI ENT ENT exam: Present mucous membranes moist Neck Neck exam: Present normal inspection, full ROM and trachea midline Respiratory Respiratory exam: Absent respiratory distress, wheezes, stridor, accessory muscle use or prolonged expiratory phase Cardiovascular Cardiovascular exam: Present normal rhythm Abdominal Exam Abdominal exam: Present soft; Absent distention, tenderness, guarding, rebound or rigidity Extremities Exam Extremities exam: Absent edema Back Exam Back exam: Present CVA tenderness (R); Absent CVA tenderness (L) Neurological Exam Neurological exam: Present alert, oriented X3, CN II-XII intact and normal gait; Absent motor sensory deficit Skin Skin exam: Present warm and dry; Absent diaphoresis or erythema Medical Decision Making Medical Records Medical records reviewed: Yes I reviewed the patient's medical records. Rodolfo Inquiry Pt receiving controlled substance: No Rodolfo was queried for this patient: No Vital Signs: 11/19/23 10:43 11/19/23 11:00 11/19/23 11:34 Temperature 97.6 F Temperature Source Oral Pulse Rate 58 L 52 L Pulse Rate [Right Radial] 59 L Respiratory Rate 18 Blood Pressure 161/82 H 141/68 H Blood Pressure [Right Arm] 177/98 H Blood Pressure Mean [Right Arm] 124 Blood Pressure Source [Right Arm] Automatic Cuff Blood Pressure Position [Right Arm] Sitting 02 Sat by Pulse Oximetry 96 97 92 L Oxygen Delivery Method Room Air Room Air Lab Data Lab Results 11/19/23 11:06: WBC 6.8, RBC 4.18 L, Hgb 13.1, Hct 40.5, MCV 96.8, MCH 31.3 H, MCHC 32.4, RDW 14.2, Plt Count 424, MPV 8.4, Neut % (Auto) 69.4, Lymph % (Auto) 22.8, Pettis % (Auto) 5.1, Eos % (Auto) 2.3, Baso % (Auto) 0.4, Neut # (Auto) 4.7, Lymph # (Auto) 1.6, Pettis # (Auto) 0.4, Eos # (Auto) 0.2, Baso # (Auto) 0.0, Sodium 139, Potassium 4.0, Chloride 105, Carbon Dioxide 28, Anion Gap 10.0, BUN 14, Creatinine 0.80, Estimated Creat Clear 46, Estimated GFR 69, Est GFR ( Amer) 83, Glucose 105 H, Calcium 9.3, Total Bilirubin 0.7, AST 28, ALT 23, Alkaline Phosphatase 121, Total Protein 6.6, Albumin 3.8, Globulin 2.8, Albumin/Globulin Ratio 1.4 11/19/23 11:06 11/19/23 11:06 Orders (Tests/Meds): ED MEDICATIONS Generic Name Dose Route Start Last Admin Trade Name Freq PRN Reason Stop Dose Admin Acetaminophen/Codeine Phosphate 1 packet 11/19/23 13:12 11/19/23 13:24 Acetaminophen 300mg W/Codeine 30mg Take Home Pack (6) PO 11/19/23 13:13 1 packet ONCE ONE Administration Lidocaine 1 each 11/19/23 13:12 11/19/23 13:24 Lidocaine 5% Transdermal Patch TP 11/19/23 13:13 1 each ONCE ONE Administration Prednisone 40 mg 11/19/23 13:12 11/19/23 13:24 Prednisone 20mg Tab PO 11/19/23 13:13 40 mg ONCE ONE Administration Sodium Chloride 10 ml 11/19/23 10:52 11/19/23 11:29 Sodium Chloride 0.9% 10ml Flush Syringe IV 12/19/23 10:51 10 ml NEEDED PRN Administration Maintain IV Site Discontinued Medications Generic Name Dose Route Start Last Admin Trade Name Freq PRN Reason Stop Dose Admin Hydromorphone HCl 0.5 mg 11/19/23 12:11 11/19/23 12:19 Hydromorphone 2mg/Ml Syringe IV 11/19/23 12:12 0.5 mg ONCE ONE Administration Ketorolac Tromethamine 15 mg 11/19/23 11:09 11/19/23 11:29 Ketorolac 30mg/Ml Vial IV 11/19/23 11:10 15 mg ONCE ONE Administration Morphine Sulfate 4 mg 11/19/23 11:09 11/19/23 11:30 Morphine 4mg/Ml Syringe IV 11/19/23 11:10 4 mg ONCE ONE Administration ORDERS Category Date Time Status CT abdomen pelvis wo con Stat Cat Scan 11/19/23 11:09 Completed Complete Blood Count Auto Diff Stat Lab 11/19/23 11:06 Completed Comprehensive Metabolic Panel Stat Lab 11/19/23 11:06 Completed Urinalysis and Microscopic Stat Lab 11/19/23 10:52 Ordered Medical Decision Narrative: 83-year-old female history of hypertension presenting with right flank pain. Woke her up from sleep today. Starts in her right flank, radiates into her right hip. Denies any trauma. Patient has been nauseated without vomiting. No dysuria, hematuria, diarrhea, constipation, fevers or chills, or any other concerns. History was obtained via conversation with patient and son. On arrival, patient hemodynamically stable, alert, oriented x4, appropriate, GCS 15, moving all extremities spontaneously, pupils equal and reactive to light. Full physical exam performed and significant for uncomfortable appearing woman in no acute distress. Intermittently having flares of pain during conversation. Right flank tenderness to percussion without overlying skin changes. No abdominal tenderness. Differential includes pyelonephritis, nephrolithiasis, aortic pathology, mesenteric ischemia, PUD, pancreatitis, hernia, among others. Patient was given Toradol, morphine IV for symptomatic management and correction of underlying abnormalities. Workup independently interpreted and significant for nonactionable CBC, chemistry, urine. CT spine/abdomen pelvis without contrast concerning for new T12 compression fracture less than 50% with mild retropulsion. See radiology read for full review of final results. On reevaluation, patient given Tylenol 3 take-home pack, lidocaine patch, prednisone. Rest of labs were drawn for patient's annual checkup because patient has difficult vascular access and blood already drawn here. These are pending at time of discharge. Patient was given follow-up with Dr. Sanchez. Given patient presentation, workup, history, this most likely represents acute compression fracture T12 with mild height loss. Because patient at baseline without signs or symptoms of clinical decompensation, deemed appropriate for discharge. Results were relayed to patient who voiced understanding and were agreeable to outpatient management and follow up. At the time of discharge the patient was hemodynamically stable, tolerating PO, and mobilizing appropriately. Critical Care Critical Care Time Critical Care Time: No
[2023-11-19] MEDS: SODIUM CHLORIDE 0.9% 10ML FLUSH SYRINGE 10 ML IV (11:29)
[2023-11-19] MEDS: KETOROLAC 30MG/ML VIAL 15 MG IV (11:29)
[2023-11-19] MEDS: MORPHINE 4MG/ML SYRINGE 4 MG IV (11:30)
[2023-11-19 11:34] VITALS: BP 141/68; PULSE 52; O2SAT 92
--- NOTE | 2023-11-19 12:02 | PC.NURSE ---
Pt attempted to get up to obtain urine sample. Pt able to sit up, but not able to stand at this time due to unbearable pain. Dr. Hernandez notified.
[2023-11-19] MEDS: HYDROMORPHONE 2MG/ML SYRINGE 0.5 MG IV (12:19)
--- NOTE | 2023-11-19 13:11 | PC.NURSE ---
DR TERRELL AT BEDSIDE TO UPDATE PT AND FAMILY
[2023-11-19] MEDS: ACETAMINOPHEN 300MG W/CODEINE 30MG TAKE HOME PACK (6) 1 PACKET PO (13:24)
[2023-11-19] MEDS: LIDOCAINE 5% TRANSDERMAL PATCH 1 EACH TP (13:24)
[2023-11-19] MEDS: predniSONE 20MG TAB 40 MG PO (13:24)
[2023-11-19 13:46] VITALS: BP 167/81; PULSE 94; RESP 18; TEMP 36.6; O2SAT 95
[2023-11-19 14:55] LABS: Chol/HDL Ratio 3.3 (1-3.5); Cholesterol 151 mg/dl (140-200); HDL Cholesterol 46 mg/dl (40-60); Triglycerides 144 mg/dl (30-150); VLDL Cholesterol 29 mg/dL (0-40)
[2023-11-19 15:06] LABS: Direct LDL Cholesterol 78.16 mg/dL (100-129)
[2023-11-19 15:14] LABS: 25-OH Vitamin D, Total 42.7 ng/mL (30-100); T4 (Thyroxine) 8.9 ug/dl (5.53-11.0)
[2023-11-25 15:30] LABS: 1,25 Dihydroxy Vitamin D 68 pg/mL (.); 1,25-Dihydroxy, Vitamin D-2 <10 pg/mL (.); 1,25-Dihydroxy, Vitamin D-3 68 pg/mL (.)
== END 2023-11-19 13:48 | disposition home or self-care (01) ==
PROVIDERS: Emergency Provider Emergency Medicine
DX: S22.080A Wedge compression fracture of T11-T12 vertebra, initial encounter for closed fracture (principal); I10 Essential (primary) hypertension; M25.551 Pain in right hip; R11.0 Nausea; R10.9 Unspecified abdominal pain
CPT/HCPCS: 74176; 80053; 80061; 82306; 82652; 84436; 84443; 85025; 96374; 96375; 99285

== ENCOUNTER → 2023-11-21 14:42 | Outpatient (POV) | payer MEDICARE, OTHER, BC, SELFPAY ==
[2023-11-21 15:43] VITALS: BP 168/83; PULSE 64; RESP 18; O2SAT 91; BMI 31.8
--- NOTE | 2023-11-21 16:17 | A.OFFVIS_ITS ---
HPI Data of Consult Patient: new to practice Consult date: 11/21/23 Requesting Physician: Treva Briones APRN Consult Narrative Reason for consult: Acute compression fracture of T12 History of present illness: Ms. Mora is a 83 year old female who presents today as a new patient. Today she rates her pain a 10 out of 10. Patient states her pain is all in her mid back and states it does radiate down into her lower back. She does describe this as a aching, throbbing sensation with occasional sharp shooting pains. Patient states this did start approximately 3 weeks ago and related to any specific fall or trauma. She states that she did have a fall back in May that was pretty significant however at that time she had no back pain. Patient does state now that the pain is debilitating and does interfere with her ability perform activities of daily living such as cooking or cleaning or even simple ambulation. Patient has tried [id number] Tylenol along with heat and ice and topicals such as lidocaine patches with minimal improvement. Patient did present to the ER and did have updated imaging that did show a acute compression fracture of T12 with mild height loss. Patient was given Tylenol 3 that she does states helps take the edge off however she was only given a limited amount of tablets and is going to be out of those today. Patient does states she has a history of back problems however her pain is never been like what it was nail. She does also have a history of osteoporosis and states she does take vitamin C along with multivitamins to help with this condition. Her Rodolfo has been reviewed and is appropriate. CC: Treva Briones APRN [facility] Disclaimer: The information contained in this section may have been updated after the patient was seen, as this information can be updated by other users. Medical History (Updated 11/21/23 @ 16:26 by Treva Briones APRN) Breast cancer Surgical History S/P lumpectomy, left breast Family History (Updated 11/21/23 @ 15:44 by Florencia Chou RN) Other Unknown family medical history Social History (Updated 11/21/23 @ 15:44 by Florencia Chou RN) Smoking Status: Never smoker alcohol intake: never current occupational status: retired Travel in the last 8 weeks: None adopted: No Review of Systems Review of Systems Review of systems:: pertinent systems reviewed and negative unless documented below Review of systems (narrative): Review of Systems: General: No recent weight changes, no fever, no sleep disturbances Respiratory: No cough, no shortness of air, no recurring pulmonary infections Cardiovascular/peripheral vascular: No chest pain, no palpitations, no edema, no shortness of breath Gastrointestinal: No new onset incontinence, normal bowel movements reported Genitourinary: No new onset incontinence Musculoskeletal: Mid back pain, low back pain Psychiatric: [Normal mood/affect] Neurological: [Denies weakness in extremities], [denies balance issues] Meds Home Medications and Allergies Home Medications Medication Instructions Recorded Confirmed Type aspirin 81 mg chewable tablet 81 mg PO DAILY heart health 07/09/22 11/21/23 History carvedilol 3.125 mg tablet 3.125 mg PO BID High Blood Pressure 07/09/22 11/21/23 History furosemide 40 mg tablet 40 mg PO DAILY Edema 07/09/22 11/21/23 History levothyroxine 50 mcg tablet 50 mcg PO DAILY Thyroid 07/09/22 11/21/23 History lisinopril 10 mg tablet 10 mg PO DAILY High Blood Pressure 07/09/22 11/21/23 History omeprazole 20 mg tablet,delayed 20 mg PO DAILY Acid Reflux 07/09/22 11/21/23 History release acetaminophen 325 mg tablet 650 mg PO Q4HP PRN Fever Or Mild 06/18/23 11/21/23 Rx Pain (1-3) #0 tabs docusate sodium 100 mg capsule 100 mg PO DAILYP PRN Constipation 06/18/23 11/21/23 Rx #0 caps ketorolac 30 mg/mL (1 mL) 15 mg (0.5 mL) IV Q6HP PRN 06/18/23 11/21/23 Rx injection solution Moderate To Severe Pain (4-10) #0 mL ondansetron HCl (PF) 4 mg/2 mL 4 mg (2 mL) IV Q6HP PRN Nausea #0 06/18/23 11/21/23 Rx injection solution mL lidocaine 5 % topical patch 1 patch topical DAILY #15 ea 11/19/23 11/21/23 Rx prednisone 20 mg tablet 40 mg PO BID 5 days #20 tabs 11/19/23 11/21/23 Rx acetaminophen 300 mg-codeine 30 mg 1 tab PO TID PRN pain #42 tabs 11/21/23 Rx tablet apixaban 5 mg tablet (Eliquis) 5 mg PO DAILY 11/22/23 History New Prescriptions to Start Prescriptions: acetaminophen-codeine Treva Briones Allergies Allergy/AdvReac Type Severity Reaction Status Date / Time No Known Allergies Allergy Verified 06/17/23 01:54 Objective Vital signs: Pulse Resp BP Pulse Ox O2 Del Method 64 18 168/83 H 91 L Room Air 11/21/23 15:43 11/21/23 15:43 11/21/23 15:43 11/21/23 15:43 11/21/23 15:43 Narrative: Physical Exam: General: Alert and oriented x3, no acute distress, pleasant and cooperative Lungs: Respirations even and unlabored, symmetrical chest expansion Eyes: PERRL Musculoskeletal: Flexion and extension of thoracic, lumbar [spine] somewhat guarded secondary to pain, [antalgic gait noted] Neurological: Speech clear, no gross sensory deficit Additional findings Additional findings: PROCEDURE INFORMATION: Exam: CT Abdomen And Pelvis Without Contrast Exam date and time: 11/19/2023 11:22 AM Age: 83 years old Clinical indication: Abdominal pain; Acute; Additional info: R sided stone concern TECHNIQUE: Imaging protocol: Computed tomography of the abdomen and pelvis without contrast. Radiation optimization: All CT scans at this facility use at least one of these dose optimization techniques: automated exposure control; mA and/or kV adjustment per patient size (includes targeted exams where dose is matched to clinical indication); or iterative reconstruction. REPORTING DATA: Count of CT and Cardiac NM exams in prior 12 months: This patient has received 2 known CTs and 0 known cardiac nuclear medicine studies in the 12 months prior to the current study. COMPARISON: CT ABDOMEN PELVIS W CON 07/09/2022 11:47 PM FINDINGS: Lungs: There are minor atelectatic changes at the lung bases. Diaphragm: Small hiatal hernia. Liver: Small liver cysts at the junction of the right left lobes unchanged. Subcentimeter hypodensity lateral margin right lobe also unchanged, likely benign. Gallbladder and bile ducts: Gallbladder has been removed. There is mild associated dilatation of the common bile duct. Pancreas: Unremarkable. Main pancreatic duct is not significantly dilated. Spleen: Normal. No splenomegaly. Adrenal glands: Normal. No mass. Kidneys and ureters: There are 3 small calcifications adjacent to the right mid ureter unchanged believed to represent incidental pelvic phleboliths. There also multiple calcifications adjacent to the left mid ureter also unchanged believed to represent phleboliths. 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 Stomach and bowel: Scattered diverticuli large bowel without evidence of diverticulitis. Appendix: No evidence of appendicitis. Intraperitoneal space: Unremarkable. No free air. No significant fluid collection. Vasculature: Scattered atherosclerotic changes of the abdominal aorta and iliac vessels. No aortic aneurysm. Lymph nodes: Unremarkable. No enlarged lymph nodes. Urinary bladder: Unremarkable as visualized. Reproductive: Uterus has been removed. Bones/joints: Slight scoliosis lower lumbar spine convex to the patient's left. There is a mild compression fracture involving the superior endplate of T12 resulting in slight retropulsion of the superior endplate developed from prior study and appears recent with the mild indistinct paraspinal soft tissue swelling noted. Mild degenerative endplate changes superior endplate of L1 unchanged. Mild degenerative changes L5-S1 also stable. Cephalomedullary nail within the right hip, unchanged. Soft tissues: Otherwise unremarkable.. IMPRESSION: 1. Mild left hydronephrosis unchanged likely secondary to UPJ narrowing. 2. Mild acute compression fracture T12 vertebral body. 3. Additional nonemergent findings as above. Assessment and Plan *Assessment and plan (1) Compression fracture of thoracic vertebra: Status: Acute Qualifiers: Encounter type: initial encounter Thoracic vertebra fracture level: T12 Qualified Code(s): S22.080A - Wedge compression fracture of T11-T12 vertebra, initial encounter for closed fracture Category: Medical Code(s): S22.000A - Wedge compression fracture of unspecified thoracic vertebra, initial encounter for closed fracture (2) Low back pain: Status: Acute Qualifiers: Back pain laterality: bilateral Chronicity: acute Sciatica presence: without sciatica Qualified Code(s): M54.50 - Low back pain, unspecified Category: Medical Code(s): M54.50 - Low back pain, unspecified (3) Mid back pain: Status: Acute Category: Medical Code(s): M54.9 - Dorsalgia, unspecified (4) Osteoporosis: Status: Acute Qualifiers: Encounter type: initial encounter Osteoporosis type: unspecified Presence of current pathological fracture: with current pathological fracture Qualified Code(s): M80.00XA - Age-related osteoporosis with current pathological fracture, unspecified site, initial encounter for fracture Category: Medical Code(s): M81.0 - Age-related osteoporosis without current pathological fracture Plan Patient is experiencing significant pain in her mid back with radiating symptoms to her low back related to an acute compression fracture of T12. CT imaging of her abdomen did not show the T12 compression fracture with significant edema and mild height loss. I have discussed with the patient that she may benefit from a kyphoplasty procedure. Risk and benefits and educational handouts were given during today's visit. Patient is agreeable to this procedure and does have her sons present for this visit and would also like to proceed forward. I will order the patient a back brace to help support and stabilize her thoracic spine around the compression site. I will send in a prescription of Tylenol 3 3 times a day with a 2-week supply of this medication. I will order the patient a CT with contrast of her thoracic spine and DEXA scan to verify osteoporosis history. Patient will be submitted for a kyphoplasty procedure of T12. Patient is currently on blood thinner of Eliquis and I have discussed with the patient that we will contact her provider Dr. Diggs in [place] to review over with him that she can stop this medication prior to this surgical procedure. Patient has been instructed to contact the clinic with any concerns before the next appointment. Dr. Sanchez has reviewed this note and agrees with this plan of care. This note was dictated using voice recognition software and make contain errors or omissions. Addendum: Patients son was contacted to review over thoracic imaging. I have counseled the patient's son that this is a burst fracture and unfortunately we are not able to do a kyphoplasty for this type of injury. I am recommending that we send a referral to Dr. Palomo in [place] for evaluation. I have discussed also with the family that she may benefit from thoracic epidurals at this site in the future for chronic pain. Patient will be scheduled for 2-week follow-up for medication refill and plan of care.
== END | disposition home or self-care (01) ==
PROVIDERS: Visit Provider Nurse Practitioner Family
DX: S22.080A Wedge compression fracture of T11-T12 vertebra, initial encounter for closed fracture (principal); M54.50 Low back pain, unspecified; M54.6 Pain in thoracic spine; M80.00XA Age-related osteoporosis with current pathological fracture, unspecified site, initial encounter for fracture
CPT/HCPCS: 99202; G0463

== ENCOUNTER 2023-11-22 15:18 | Outpatient (CLI) | payer MEDICARE, BC, SELFPAY ==
--- NOTE | 2023-11-22 15:29 | CT_ITS ---
PROCEDURE INFORMATION: Exam: CT Thoracic Spine With Contrast Exam date and time: 11/22/2023 4:02 PM Age: 83 years old Clinical indication: Condition or disease; Other: T-12 compression FX. ; Additional info: T 12 compression fracture TECHNIQUE: Imaging protocol: Computed tomography of the thoracic spine with contrast. Radiation optimization: All CT scans at this facility use at least one of these dose optimization techniques: automated exposure control; mA and/or kV adjustment per patient size (includes targeted exams where dose is matched to clinical indication); or iterative reconstruction. Contrast material: ISOVUE; Contrast volume: 75 ml; Contrast route: IV; COMPARISON: CT ABDOMEN PELVIS WO CON 11/19/2023 11:22 AM FINDINGS: Bones/joints: There is redemonstration of acute incomplete burst fracture at T12 vertebra. Mild retropulsion of the posterosuperior cortex noted. There is less than 50% height loss. Age-indeterminate but chronic appearing superior endplate deformity at T10 and L1 vertebrae. Facet joints are aligned. There is preservation of vertebral alignment. Soft tissues: Unremarkable. Pleural spaces: Mild right pleural thickening/effusion Gallbladder and bile ducts: There has been a cholecystectomy. IMPRESSION: There is redemonstration of acute incomplete burst fracture at T12 vertebra. Mild retropulsion of the posterosuperior cortex noted. There is less than 50% height loss.
[2023-11-22] MEDS: IOPAMIDOL-370 (76%);100ML BOTTLE 75 ML IV (16:22)
[2023-11-22] MEDS: SODIUM CHLORIDE 0.9% 10ML SYR (RAD ONLY) 10 ML IV (16:23)
== END 2023-11-22 23:59 ==
LOC: RAD 15:19
PROVIDERS: Visit Provider Nurse Practitioner Family
DX: M54.6 Pain in thoracic spine (principal); S22.080A Wedge compression fracture of T11-T12 vertebra, initial encounter for closed fracture
CPT/HCPCS: 72129; Q9967

== ENCOUNTER 2025-06-29 08:03 | Outpatient (CLI) | payer MEDICARE, BC, SELFPAY ==
[2025-06-29 08:43] LABS: Hematocrit 40.9 % (37.0-47.0); Hemoglobin 12.8 g/dL (12.2-16.2); Immature Granulocytes % 0.2 %; Mean Corpuscular HGB Conc 31.3 g/dL (31.8-35.4); Mean Corpuscular Hemoglobin 30.1 pg (27.0-31.2); Mean Corpuscular Volume 96.2 fl (81-99); Nucleated Red Blood Cells % 0 %; Platelet Count 352 K/mm3 (142-424); Red Blood Count 4.25 M/mm3 (4.20-5.40); Red Cell Distribution Width-SD 46.9 fL; White Blood Count 5.7 K/mm3 (4.8-10.8)
[2025-06-29 08:54] LABS: Albumin Level 4.0 g/dl (3.5-5.0)
[2025-06-29 08:55] LABS: Chloride 101 mmol/L (98-107); Potassium 4.1 mmoL/L (3.5-5.1); Sodium 138 mmol/L (136-145)
[2025-06-29 08:57] LABS: Alanine Aminotransferase 16 U/L (12-78); Anion Gap 13.1 mEq/L (5-15); Aspartate Amino Transferase 26 U/L (14-36); Blood Urea Nitrogen 13 mg/dl (7-17); Carbon Dioxide 28 mmol/L (22.0-30.0); Creatinine,Serum 0.80 mg/dl (0.52-1.04); Estimated Glomerular Filt Rate 68 ml/min (>60); GFR (African American) 83 ML/MIN (>60)
[2025-06-29 08:58] LABS: Albumin/Globulin Ratio 1.9 (1.1-1.8); Alkaline Phosphatase 80 U/L (38-126); Bilirubin,Total 0.7 mg/dl (0.2-1.3); Calcium 9.2 mg/dl (8.4-10.2); Cholesterol 155 mg/dl (140-200); Globulin 2.1 g/dL (1.3-3.2); Glucose 100 mg/dl (74-100); HDL Cholesterol 58 mg/dl (40-60); Total Protein,Serum 6.1 g/dl (6.3-8.2); Triglycerides 172 mg/dl (30-150)
[2025-06-29 09:33] LABS: Thyroid Stimulating Hormone 4.76 uIU/mL (0.465-4.68)
[2025-06-29 10:03] LABS: Free T4 (Free Thyroxine) 1.24 ng/dl (0.78-2.19)
== END 2025-06-29 23:59 | disposition home or self-care (01) ==
PROVIDERS: PCP Surgery; Visit Provider Surgery
DX: E78.5 Hyperlipidemia, unspecified (principal)
CPT/HCPCS: 36415; 80053; 80061; 84439; 84443; 85025